=== PATIENT | male | born 1935 | race Caucasian/White ===

== ENCOUNTER 2018-05-14 13:38 | Emergency (ER) | payer MEDICARE, OTHER | END 2018-05-14 14:38 | disposition left against medical advice (07) | LOC: ERS 13:38 | DX: Z53.21 Procedure and treatment not carried out due to patient leaving prior to being seen by health care provider (principal) ==

== ENCOUNTER 2018-05-14 14:25 | Emergency (ER) | payer MEDICARE, OTHER ==
--- NOTE | 2018-05-14 15:41 | RAD ---
LUMBAR SPINE 2 VIEWS: Date: 05/14/18 HISTORY: Low back pain. FINDINGS/IMPRESSION: Postop changes of posterior spinal fusion is seen at L4-L5-S1 levels. There is Grade I anterolisthesi s of L4 over L5. No acute fracture or bony destruction is seen. The metallic hardware is intact. POS: [facility]
== END 2018-05-14 16:12 | disposition home or self-care (01) ==
LOC: SCSER 14:25
DX: S76.311A Strain of muscle, fascia and tendon of the posterior muscle group at thigh level, right thigh, initial encounter (principal); M54.5 Low back pain; M54.6 Pain in thoracic spine; I10 Essential (primary) hypertension; E11.9 Type 2 diabetes mellitus without complications; E03.9 Hypothyroidism, unspecified; K21.9 Gastro-esophageal reflux disease without esophagitis; E78.5 Hyperlipidemia, unspecified; F32.9 Major depressive disorder, single episode, unspecified; Z79.899 Other long term (current) drug therapy; Z79.84 Long term (current) use of oral hypoglycemic drugs; Z79.82 Long term (current) use of aspirin; X50.1XXA Overexertion from prolonged static or awkward postures, initial encounter
CPT/HCPCS: 72100

== ENCOUNTER 2019-04-05 19:26 | Observation (INO) | payer OTHER, MEDICARE ==
[2019-04-05 19:57] LABS: #Basophils 0.1 thou/uL (0.0-0.2); #Eosinphils 0.5 thou/uL (0.0-0.7); #Monocytes 0.6 thou/uL (0.11-0.59); #Neutrophils 3.2 thou/uL (1.40-6.50); %Basophils 1.3 % (0.0-1.0); %Lymphocytes 31.5 % (21.0-51.0); %Monocytes 8.9 % (0.0-10.0); %Neutrophils 50.3 % (42.0-75.0); Hemoglobin 12.1 g/dL (14.0-18.0); Mean Corpuscular HGB CONC 34.4 g/dL (32.0-36.0); Mean Corpuscular Hemoglobin 34.7 pg (27.0-31.0); Mean Platelet Volume 7.6 fL (7.4-10.4); Platelet Count 135 thou/uL (130-400); RBC Distribution Width 11.8 % (11.5-14.5); Red Blood Cell (RBC) Count 3.48 mill/uL (4.70-6.10); White Blood Cell (WBC) Count 6.5 thou/uL (4.8-10.8)
--- NOTE | 2019-04-05 20:17 | RAD ---
Chest AP view INDICATION: Chest pain with exertion COMPARISON: None FINDINGS: Lungs:Mild left basilar atelectasis. No consolidation demonstrated. Cardiac silhouette:The patient is rotated to the right slightly limiting evaluation of the cardiac si lhouette and mediastinum. No definite acute abnormality is noted. Pulmonary vasculature:Normal Pleural spaces:No pleural effusion or pneumothorax is demonstrated. Upper abdomen:No abnormality seen. Osseous structures: No acute osseous abnormality. Additional findings:None. IMPRESSION: No acute cardiopulmonary abnormality.
[2019-04-05 20:21] LABS: ALT (SGPT) 29 U/L (8-55); AST (SGOT) 25 U/L (5-34); Alkaline Phosphatase 60 U/L (40-110); Anion Gap 9 mmol/L (10-20); BUN (Urea Nitrogen) 27 mg/dL (8.4-25.7); Bilirubin, Total 0.4 mg/dL (0.2-1.2); Calc. Creatinine Clearance 0 mL/min (70-130); Calcium 8.8 mg/dL (7.8-10.44); Carbon Dioxide 29 mmol/L (23-31); Chloride 107 mmol/L (98-107); Estimated GFR-MDRD 50; Globulin 2.5 g/dL (2.4-3.5); Glucose 131 mg/dL (83-110); Lipase 31 U/L (8-78); Potassium 4.3 mmol/L (3.5-5.1); Protein, Total 6.5 g/dL (5.8-8.1); Sodium 141 mmol/L (136-145)
--- NOTE | 2019-04-05 21:39 | PDOC.FPRHP ---
- History of Present Illness Chief Complaint: chest pain History of Present Illness: 83 yo male with PMHx of HTN, HLD, DM2, BPH, carotid artery sclerosis c/o chestpain, substernal and right sided. Has been going on for a week. Pain worsens with deep inspiration. Has not experienced this pain at all before in the past. Has not tried medication for it. Per his , he cannot take ibuprofen. But he did take four baby aspirin before he left the house. He also took a daily aspirin this am. He has been in therapy for 2.5wks for back and hip pain. 3 years ago: reportedly had a cardiac cath that demonstrated a small blockage not requiring as tent Last year: reportedly had carotid dopplers that demonstrated 70% stenosis on one side, though stenting was not indicated due to patient's age PCP: [place] Cards: Patient's specifically requests Dr. Castaneda for patient if he needs a die tripper referral as that is her die tripper : Linh Rasmussen, Daughter: Slime Cowan [phone] ED Course: 1 nitro, 18g LAC - Allergies/Adverse Reactions Allergies Allergy/AdvReac Type Severity Reaction Status Date / Time iodine Allergy Verified 04/05/19 22:27 Penicillins Allergy Verified 04/05/19 22:27 - Home Medications Medication Instructions Recorded Confirmed Type Aspirin [Aspir-Low] 81 mg PO DAILY 04/05/19 04/05/19 History Atorvastatin Calcium 80 mg PO HS 04/05/19 04/05/19 History Citalopram Hydrobromide 40 mg PO HS 04/05/19 04/05/19 History [Citalopram HBr] Cyanocobalamin (Vitamin B-12) 1,000 mcg PO DAILY 04/05/19 04/05/19 History [Vitamin B-12] Empagliflozin [Jardiance] 25 mg PO DAILY 04/05/19 04/05/19 History Ferrous Sulfate [Feosol] 325 mg PO DAILY 04/05/19 04/05/19 History Levothyroxine Sodium [Synthroid] 50 mcg PO DAILY 04/05/19 04/05/19 History Pramipexole Di-HCl [Mirapex] 0.5 mg PO HS 04/05/19 04/05/19 History Ranitidine HCl 150 mg PO BID 04/05/19 04/05/19 History Tamsulosin HCl [Flomax] 0.4 mg PO DAILY 04/05/19 04/05/19 History - History PMHx: TN, HLD, DM2, BPH, carotid artery stenosis PSHx: Hx of heart catheterization ~ 3 years ago; back sx L1-L2, L arm surgery 195, tonsillectomy FHx: Father had MA in his 60s Social: 3-4ppd smoker for >30yr, no etoh, no drugs - Review of Systems General: denies: fever/chills, weight/appetite/sleep changes Eyes: denies: eye pain, vision changes ENT: denies: nasal congestion, rhinorrhea Respiratory: denies: cough, shortness of breath Cardiovascular: reports: chest pain. denies: edema Gastrointestinal: denies: nausea, vomiting, diarrhea, constipation Genitourinary: denies: dysuria, discharge Skin: denies: lesions, jaundice Musculoskeletal: reports: pain (back pain). denies: swelling Neurological: denies: syncope, seizure Psychological: denies: anxiety, depression - Vital signs BP: [123/103] HR: [66] RR: 20 Tmax: [97.9F] Pox: [97]% on [RA] Wt: [73.6kg] - Physical Exam Constitutional: NAD, awake, alert and oriented HEENT: EOMI, MMM Neck: supple, FROM Chest: no-tender to palpation, no lesions Heart: RRR, normal S1/S2 Lungs: CTAB, no respiratory distress Abdomen: soft, non-tender Musculoskeletal: normal structure, normal tone, ROM grossly normal Neurological: no focal deficit, normal sensation Skin: no rash/lesions, no jaundice Heme/Lymphatic: other (some purpura upper extremities) Psychiatric: normal mood and affect, good judgment and insight FMR H&P: Results - Labs Result Diagrams: 04/05/19 19:50 04/05/19 19:48 Lab results: WBC 6.5 thou/uL (4.8-10.8) 04/05/19 19:50 Hgb 12.1 g/dL (14.0-18.0) L 04/05/19 19:50 Hct 35.1 % (42.0-52.0) L 04/05/19 19:50 MCV 101.0 fL (78.0-98.0) H 04/05/19 19:50 Plt Count 135 thou/uL (130-400) 04/05/19 19:50 Neutrophils % 50.3 % (42.0-75.0) 04/05/19 19:50 Sodium 141 mmol/L (136-145) 04/05/19 19:48 Potassium 4.3 mmol/L (3.5-5.1) 04/05/19 19:48 Chloride 107 mmol/L (98-107) 04/05/19 19:48 Carbon Dioxide 29 mmol/L (23-31) 04/05/19 19:48 BUN 27 mg/dL (8.4-25.7) H 04/05/19 19:48 Creatinine 1.37 mg/dL (0.7-1.3) H 04/05/19 19:48 Glucose 131 mg/dL (83-110) H 04/05/19 19:48 Calcium 8.8 mg/dL (7.8-10.44) 04/05/19 19:48 Total Bilirubin 0.4 mg/dL (0.2-1.2) 04/05/19 19:48 AST 25 U/L (5-34) 04/05/19 19:48 ALT 29 U/L (8-55) 04/05/19 19:48 Alkaline Phosphatase 60 U/L (40-110) 04/05/19 19:48 B-Natriuretic Peptide 60.5 pg/mL (0-100) 04/05/19 19:48 Serum Total Protein 6.5 g/dL (5.8-8.1) 04/05/19 19:48 Albumin 4.0 g/dL (3.4-4.8) 04/05/19 19:48 Lipase 31 U/L (8-78) 04/05/19 19:48 - EKG Interpretation EKG: NSR, LBBB - Radiology Interpretation Chest x-ray Status: report reviewed by me (No acute cardiopulmonary abnormality) FMR H&P: A/P - Problem List (1) Atypical chest pain Current Visit: Yes Status: Acute Code(s): R07.89 - OTHER CHEST PAIN (2) LBBB (left bundle branch block) Current Visit: Yes Status: Acute Code(s): I44.7 - LEFT BUNDLE-BRANCH BLOCK, UNSPECIFIED (3) HTN (hypertension) Current Visit: Yes Status: Chronic Code(s): I10 - ESSENTIAL (PRIMARY) HYPERTENSION (4) HLD (hyperlipidemia) Current Visit: Yes Status: Chronic Code(s): E78.5 - HYPERLIPIDEMIA, UNSPECIFIED (5) DM2 (diabetes mellitus, type 2) Current Visit: Yes Status: Chronic (6) Carotid arterial disease Current Visit: Yes Status: Chronic Code(s): I73.9 - PERIPHERAL VASCULAR DISEASE, UNSPECIFIED (7) SP (acute kidney injury) Current Visit: Yes Status: Acute Code(s): N17.9 - ACUTE KIDNEY FAILURE, UNSPECIFIED (8) Macrocytic anemia Current Visit: Yes Status: Acute Code(s): D53.9 - NUTRITIONAL ANEMIA, UNSPECIFIED - Plan Patient is a 83M with PMHx of HTN, HLD, DM2, BPH, carotid artery stenosis that is admitted for atypical chest pain and new-onset LBBB #Atypical chest pain -intermittent right sided chest pain, worse with deep inspiration -last cardiac cath 3 years ago, per patients showed mild blockage not requiring stent at that time -per patient, has never had cardiac echo ->30pack year smoking hx -trop neg x 1, continue to trend -echo ordered -stress test in am -npo at midnight, avoid beta-blockers before stress test -nitro prn -tsh, A1C, mag, phos pending #New-onset LBBB -no reported hx of LBBB, though don't have any records -will get echo -telemetry monitoring overnight #SP vs CKD -creatinine 1.37 -no previous labs to compare -will provide IVF and recheck BMP in am #HTN -continue home meds #DM2 -continue home meds #HLD -continue home meds #Carotid artery stenosis -patient reportedly diagnosed with 70% stenosis in one of his carotid arteries last year, though stent placement was not indicated due to patient's age -will continue patient's home statin #Chronic Macrocytic anemia -patients states this is chronic, takes iron -B12, RBC-folate pending DVT ppx: SCDs due to fall risk Dispo: tele obs for cardiac monitoring, echo pending and stress test in the am Code: DNAR [facility]CP: [facility] H&P: Upper Level - Plan Date/Time: 04/05/192135 83 yo male presents with atypical chest pain, with a heart score of 5, negative troponin and an EKG showing a new LBBB who was admitted for a chest pain rule out. Heart cath completed without stents ~3 years prior. sWe will obs on tele overnight and order a stress test in the am. Suspected mild SP although unclear baseline. Will give mIVF and recheck labs in the am. Rachelle Long MD, PGY-3, have evaluated this patient and agree with findings/ plan as outlined by customer operations intern resident. Pertinent changes/additions are listed here.
[2019-04-05] MEDS ORDERED: Ondansetron ODT 4 MG TAB SL PRN (22:24)
[2019-04-05] MEDS ORDERED: Ondansetron PF 4 MG/2 ML Vial IVP PRN (22:24)
[2019-04-05] MEDS ORDERED: Acetaminophen 325 MG TAB PO PRN ×2 (22:24→22:36)
[2019-04-05] MEDS ORDERED: Famotidine 20 MG TAB PO PRN ×2 (22:36→23:00)
[2019-04-05] MEDS ORDERED: Ondansetron ODT 4 MG TAB PO PRN (22:36)
[2019-04-05] MEDS ORDERED: Nitroglycerin 0.4 MG TAB (25 Tab Bottle) PO PRN (22:36)
[2019-04-05 22:50] VITALS: BMI 24.7
[2019-04-05] MEDS: Lactated Ringer's 1,000 ML IV SCH (23:13)
[2019-04-05 23:40] LABS: Troponin I Less than 0.010 ng/mL (< 0.028)
[2019-04-06 02:21] LABS: Troponin I Less than 0.010 ng/mL (< 0.028)
[2019-04-06 05:52] LABS: #Basophils 0.1 thou/uL (0.0-0.2); #Eosinphils 0.5 thou/uL (0.0-0.7); #Lymphocytes 1.8 thou/uL (1.20-3.40); #Monocytes 0.5 thou/uL (0.11-0.59); #Neutrophils 2.6 thou/uL (1.40-6.50); %Basophils 0.9 % (0.0-1.0); %Eosinophils 8.7 % (0.0-10.0); %Lymphocytes 33.1 % (21.0-51.0); %Monocytes 9.7 % (0.0-10.0); %Neutrophils 47.7 % (42.0-75.0); Hemoglobin 11.8 g/dL (14.0-18.0); Mean Corpuscular HGB CONC 34.5 g/dL (32.0-36.0); Mean Corpuscular Hemoglobin 34.1 pg (27.0-31.0); Mean Corpuscular Volume 98.8 fL (78.0-98.0); Mean Platelet Volume 7.7 fL (7.4-10.4); Platelet Count 126 thou/uL (130-400); RBC Distribution Width 11.9 % (11.5-14.5); Red Blood Cell (RBC) Count 3.46 mill/uL (4.70-6.10); White Blood Cell (WBC) Count 5.5 thou/uL (4.8-10.8)
[2019-04-06] MEDS ORDERED: Levothyroxine Sodium 50 MCG TAB PO SCH (06:00)
[2019-04-06 06:05] LABS: Hemoglobin A1c 8.7 % (4.0-6.0)
[2019-04-06 06:18] LABS: Phosphorus 3.5 mg/dL (2.3-4.7)
[2019-04-06 06:21] LABS: Anion Gap 10 mmol/L (10-20); BUN (Urea Nitrogen) 23 mg/dL (8.4-25.7); Calc. Creatinine Clearance 47 mL/min (70-130); Calcium 8.6 mg/dL (7.8-10.44); Carbon Dioxide 27 mmol/L (23-31); Chloride 107 mmol/L (98-107); Estimated GFR-MDRD 56; Glucose 133 mg/dL (83-110); Magnesium 2.1 mg/dL (1.6-2.6); Potassium 3.9 mmol/L (3.5-5.1); Sodium 140 mmol/L (136-145)
[2019-04-06 06:38] LABS: Thyroid Stimulating Hormone 5.4321 uIU/mL (0.35-4.94)
--- NOTE | 2019-04-06 06:56 | PDOC.FM ---
- Subjective Subjective: Oneyda Rasmussen seen at bedside this morning. States that his chest pain, that is worse with deep inspiration, does not feel as bad this morning. Scheduled for stress test and echo today. Denies any fever, chills, dyspnea, LE edema, abdominal pain, n/v. There were no acute events overnight and patient has no complaints this morning. - Objective MAR Reviewed: Yes Vital Signs & Weight: Vital Signs (12 hours) Temp Pulse Resp BP BP Pulse Ox 04/06/19 04:03 72 18 120/58 L 95 04/05/19 22:07 97.9 F 71 18 132/61 98 Weight Weight 73.663 kg I&O: 04/04/19 04/05/19 04/06/19 06:59 06:59 06:59 Output Total 575 Balance -575 Result Diagrams: 04/06/19 05:29 04/06/19 05:29 Radiology Reviewed by me: Yes Phys Exam - Physical Examination Constitutional: NAD HEENT: moist MMs, sclera anicteric Neck: no JVD, supple, full ROM Respiratory: no wheezing, no rales, no rhonchi, clear to auscultation bilateral Cardiovascular: RRR, no significant murmur Gastrointestinal: soft, non-tender, no distention Musculoskeletal: no edema, pulses present Neurological: non-focal, normal sensation, moves all 4 limbs Psychiatric: normal affect, A&O x 3 Skin: no rash, normal turgor, cap refill <2 seconds Dx/Plan (1) Atypical chest pain Code(s): R07.89 - OTHER CHEST PAIN Status: Acute (2) SP (acute kidney injury) Code(s): N17.9 - ACUTE KIDNEY FAILURE, UNSPECIFIED Status: Acute (3) LBBB (left bundle branch block) Code(s): I44.7 - LEFT BUNDLE-BRANCH BLOCK, UNSPECIFIED Status: Acute (4) Macrocytic anemia Code(s): D53.9 - NUTRITIONAL ANEMIA, UNSPECIFIED Status: Chronic (5) Carotid arterial disease Code(s): I73.9 - PERIPHERAL VASCULAR DISEASE, UNSPECIFIED Status: Chronic (6) DM2 (diabetes mellitus, type 2) Status: Chronic (7) HLD (hyperlipidemia) Code(s): E78.5 - HYPERLIPIDEMIA, UNSPECIFIED Status: Chronic (8) HTN (hypertension) Code(s): I10 - ESSENTIAL (PRIMARY) HYPERTENSION Status: Chronic - Plan Plan: Patient is a 83M with PMHx of HTN, HLD, DM2, BPH, carotid artery stenosis that is admitted for atypical chest pain and new-onset LBBB 1) Atypical chest pain - intermittent right sided chest pain, worse with deep inspiration - last cardiac cath 3 years ago, mild blockage not requiring stent at that time , need records - >30pack year smoking hx - trop neg x 1, continue to trend - echo and stress in the AM - nitro prn and aspirin - TSH normal, A1C of 8.7, Mag and phos wnl 2) New-onset LBBB - no reported hx of LBBB, though don't have any records - stress and echo 3) SP vs CKD - creatinine 1.37 on admission, improved to 1.23 this morning - no previous labs to compare - will provide IVF and recheck BMP in am 4) HTN - controlled, continue home meds 5) DM2 - A1c 8.7, continue home meds - consider additional agent and close follow up with PCP 6) HLD - continue home meds 7) Carotid artery stenosis - reportedly diagnosed with 70% stenosis in one of his carotid arteries last year - stent placement was not indicated due to patient's age - will continue patient's home statin 8) Chronic Macrocytic anemia - patients states this is chronic, takes iron - B12 568, RBC-folate pending
[2019-04-06] MEDS: Lactated Ringer's 1,000 ML IV SCH (08:35)
[2019-04-06] MEDS ORDERED: Empagliflozin [Jardiance] 25 MG PO SCH (09:00)
[2019-04-06] MEDS ORDERED: Aspirin 325 mg Enteric Coated Tablet PO SCH (09:00)
[2019-04-06] MEDS ORDERED: Cyanocobalamin (Vitamin B-12) 1,000 MCG TAB PO SCH (09:00)
[2019-04-06] MEDS ORDERED: Tamsulosin HCl 0.4 MG CAP PO SCH (09:00)
[2019-04-06] MEDS ORDERED: Ferrous Sulfate 325 MG TAB PO SCH (09:00)
[2019-04-06] MEDS ORDERED: ADENOSINE 60 MG/20 ML VIAL ONE (09:13)
--- NOTE | 2019-04-06 13:42 | NM ---
EXAM: Nuclear Medicine Cardiac SPECT with EF and wall motion: HISTORY: Chest pain Protocol: Exam was performed using adenosine protocol. The patient is injected with30.0 millicuries of technetium 99m sestamibi intravenously for stress lakeisha ges. The patient is injected with11 millicuries of technetium 99 sestamibi intravenously for resting image s. Multiple SPECT images are performed in the short axis, vertical long axis, and horizontal long axis. FINDINGS: There is an area of decreased activity on stress imaging within the apex and apical septum, apical in ferior and apical lateral gonzalez evidence for an area of ischemia. TID:0.83 LHR:0.37 EDV:91 mL EF:66% Wall motion:Unremarkable IMPRESSION: Evidence for ischemia primarily involving the apex region. CODE T
--- NOTE | 2019-04-06 13:48 | HP ---
I have reviewed the history and physical performed by Dr. Lyndsey Kendall and I agree with her assessment and plan. HISTORY OF PRESENT ILLNESS: Briefly, Mr. Rasmussen is a very pleasant 83-year-old man who was admitted with some substernal right-sided chest pain worse with deep inspiration. He did not necessarily notice any relationship to exercise, but did state that breathing heavily would exacerbate the pain. He was admitted and worked up. His stress test portion is negative but we are awaiting his nuclear medicine portion. His troponins were all negative. His EKG showed a left bundle-branch block. PLAN: The patient is admitted and worked up. I performed an H and P and have cosigned that of Dr. Lyndsey Kendall with whom I agree. Job ID: [id number]
[2019-04-06 15:33] VITALS: BP 153/69; TEMP 97.7
[2019-04-06] MEDS ORDERED: Ketorolac Tromethamine 30 MG/ML VIAL IVP SCH (16:00)
--- NOTE | 2019-04-06 17:22 | CON ---
DATE OF CONSULTATION: HISTORY OF PRESENT ILLNESS: The patient is an 83-year-old gentleman, who presents for evaluation of persistent chest discomfort. The patient states that he has a history of mild coronary artery disease. He underwent a cardiac catheterization [address] Pate. The patient has been on medical therapy. He was in his usual state of health until a few weeks ago. He developed midsternal chest discomfort. This has been a persistent discomfort for the past 3 weeks. He states the chest discomfort is worse whenever he takes a deep breath. The patient does significant physical activity including lifting heavy objects. The patient denied having any previous chest discomfort prior to a few weeks ago. The patient denies becoming diaphoretic or dyspneic with the chest discomfort. PAST MEDICAL HISTORY: 1. Coronary artery disease. 2. Cerebrovascular disease. 3. Hypertension. 4. Diabetes mellitus. 5. Dyslipidemia. PAST SURGICAL HISTORY: Back surgery, tonsillectomy, and arm surgery. SOCIAL HISTORY: Nonsmoker. MEDICATIONS: 1. Flomax 0.4 daily. 2. Zantac 150 b.i.d. 3. Mirapex 0.5 daily. 4. Synthroid 50 daily. 5. Iron sulfate 325 daily. 6. Jardiance 25 daily. 7. Lipitor 80 daily. 8. Aspirin 81 daily. 9. Glucotrol 10 b.i.d. ALLERGIES: IODINE AND PENICILLIN. REVIEW OF SYSTEMS: Ten-point system otherwise unremarkable. PHYSICAL EXAMINATION: GENERAL: A well-developed gentleman, in no acute distress. VITAL SIGNS: Blood pressure 144/68. NECK: No jugular venous distention. LUNGS: Clear to auscultation. HEART: Regular rate and rhythm. Normal S1 and S2. ABDOMEN: Nondistended. EXTREMITIES: Show no edema. VASCULAR: Radial pulses are 2+. LABORATORY RESULTS: Sodium 140, potassium 3.9, chloride 107, bicarbonate 27, BUN 23, and creatinine 1.23, and glucose 133. Troponin was less than 0.01. White blood cell count 5.5, hemoglobin 11.8, hematocrit 34.2, and platelets are 126. His EKG revealed him to have normal sinus rhythm with a left bundle-branch block. Adenosine Cardiolite stress revealed normal left ventricular ejection fraction of 66% with evidence of apical ischemia. IMPRESSION: 1. Musculoskeletal discomfort. 2. Abnormal stress test. 3. History of coronary artery disease. 4. History of cerebrovascular disease. 5. Hypertension. 6. Diabetes mellitus. 7. Dyslipidemia. PLAN: This gentleman presented with persistent chest discomfort suggestive of musculoskeletal pain. The patient has been highly advised to quit lifting heavy objects including 50 pounds bags. The patient's EKGs showed with showed no evidence of his ischemia with left bundle-branch block and cardiac enzymes showed no evidence of myocardial infarction. The patient's stress test showed normal left ventricular systolic function with apical ischemia with the patient being asymptomatic and with ischemia in one distribution. I have discussed the options of repeat invasive evaluation versus medical therapy. The patient strongly prefers medical therapy. The patient is on appropriate medications including lipid-lowering medication and aspirin. The patient will follow up with his primary electrical checkout mechanic, Dr. Pate. Job ID: [id number] [facility]
[2019-04-06] MEDS ORDERED: Citalopram 20 MG TAB PO SCH (21:00)
[2019-04-06] MEDS ORDERED: Atorvastatin Calcium 40 MG TAB PO SCH (21:00)
[2019-04-06] MEDS ORDERED: Pramipexole Di-HCl 0.25 MG TAB PO SCH (21:00)
[2019-04-07] MEDS ORDERED: Levothyroxine Sodium 75 MCG TAB PO SCH (06:00)
--- NOTE | 2019-04-07 10:49 | DIS ---
DATE OF ADMISSION: 04/05/2019 DATE OF DISCHARGE: 04/06/2019 RESIDENT: Shaheen Esposito MD. ADMITTING ATTENDING: Nicolás Rao MD. DISCHARGE ATTENDING: Jason De Luna MD. CONSULTS: Cardiology, Dr. Gaston on 04/06/2019. PROCEDURE/IMAGING: Chest x-ray on 04/05/2019, impression; no acute cardiopulmonary abnormality. Nuclear medicine stress test on 04/06/2019, impression; evidence for ischemia primarily involving the apex region. EF at 66%. PRIMARY DIAGNOSIS: Atypical chest pain. SECONDARY DIAGNOSES: 1. Abnormal stress test. 2. History of coronary artery disease. 3. History of cardiovascular disease. 4. Hypertension. 5. Diabetes. 6. Dyslipidemia. 7. History of tobacco use. DISCHARGE MEDICATIONS: Resume home medications including. 1. Aspirin 81 mg p.o. daily. 2. Mirapex 0.5 mg p.o. at bedtime. 3. Jardiance 25 mg p.o. daily. 4. Atorvastatin 80 mg p.o. at bedtime. 5. Citalopram 40 mg p.o. at bedtime. 6. Synthroid 50 mcg p.o. daily. 7. Ranitidine 150 mg p.o. b.i.d. 8. Flomax 0.4 mg daily. 9. Ferrous sulfate 325 mg p.o. daily. 10. Vitamin B12 1000 mcg p.o. daily. 11. Glipizide 10 mg p.o. b.i.d. 12. Nitroglycerin 0.4 mg p.o. q.5 minutes p.r.n. HOSPITAL COURSE: Oneyda Rasmussen is an 83-year-old male with past medical historyof CAD, CVD, hypertension, dyslipidemia, diabetes, history of tobacco use, who presented to the ED for evaluation of persistent chest discomfort. States that chest pain is worsened by inspiration located midsternal, has been going on for the past three weeks. Denies any exertional chest pain. Denies diaphoresis or nausea or dyspnea with chest discomfort. Stated that he had been doing significant physical activity including lifting heavy objects. Also stated that he had had a cardiac catheterization three years ago by Dr. Pate, his baker paint. On admission, chest x-ray was negative. Troponins were negative x3 and EKG showed a possible new left bundle branch block, although there are no previous records of an EKG. Stress test was performed that showed evidence for ischemia primarily involving the apex region. Dr. Gaston was consulted who saw the patient and per his plan thought the chest discomfort was suggestive of musculoskeletal pain. He advised him to quit lifting heavy objects including 50-pound bags. He does discuss the options of repeat invasive evaluation versus medical therapy and the patient strongly prefers medical therapy. Dr. Gaston confirms the patient is on appropriate medications including lipid-lowering medication, aspirin and recommended that he will follow up with his primary baker paint, Dr. Pate. The patient was cleared for discharge on 04/06/2019 with instructions to follow up with PCP and baker paint. DISPOSITION: Stable. DISCHARGE INSTRUCTIONS: 1. Location: Home. 2. Diet: Heart healthy and diabetic diet. 3. Activity: As tolerated. 4. Follow up with PCP and baker paint. Job ID: [id number]
[2019-04-08 15:10] LABS: Folate,Hemolysate 594.5 ng/mL (Not Estab.); Hematocrit 33.5 % (37.5-51.0); RBC Folate Test Component 1775 ng/mL (>498)
== END 2019-04-06 18:55 | disposition home or self-care (01) ==
LOC: ERS 19:26 → 2SW 21:24
PROVIDERS: ADMIT Family Medicine; ATTEND Family Medicine
DX: R07.89 Other chest pain (principal); R94.39 Abnormal result of other cardiovascular function study; I25.10 Atherosclerotic heart disease of native coronary artery without angina pectoris; I11.9 Hypertensive heart disease without heart failure; E11.9 Type 2 diabetes mellitus without complications; E78.5 Hyperlipidemia, unspecified; Z88.0 Allergy status to penicillin; Z91.041 Radiographic dye allergy status; Z87.891 Personal history of nicotine dependence; Z79.82 Long term (current) use of aspirin; Z79.84 Long term (current) use of oral hypoglycemic drugs
CPT/HCPCS: 36415; 71045; 78452; 80048; 80053; 82607; 82747; 83036; 83690; 83735; 83880; 84100; 84443; 84484; 85025; 93005; 93017; 94760; 96361; 96374; A9500; G0378; J0153; J1885

== ENCOUNTER 2019-09-06 14:36 | Outpatient (CLI) | payer OTHER ==
--- NOTE | 2019-09-06 16:33 | MRI ---
MRI LUMBAR SPINE WITH AND WITHOUT CONTRAST: DATE: 09/06/2019 HISTORY: 84-year-old male with low back pain and bilateral lumbar radiculopathy. COMPARISON: 05/05/2019 from [facility] [place] TECHNIQUE: Multiple sequences obtained in axial and sagittal planes, pre and post IV injection of gadolinium-bas ed contrast agent. FINDINGS: For the purposes of this report, the first nonrib-bearing vertebra will be designated as L1. The leve l of greatest lordotic angulation will be designated as L5-S1. The patient will be considered to have a slightly partially lumbarized S1. There has been interval placement of bilateral pedicle screw s and laminectomy, at lower lumbar spine, since the prior study. The bilateral pedicle screws will be considered to be at L4, L5, and S1. T12-L1:Essentially normal L1-2:Conus terminates at this level. Mild disc bulge. No central or neural foraminal stenosis. Disc s pace maintained. L2-3:Interval worsening of diffuse disc bulge. New moderate disc space narrowing. New finding of mode rate central spinal canal stenosis. Mild to moderate bilateral neural foraminal stenosis. L3-4:New large circumferential diffuse disc bulge. Superimposed new superimposed right paracentral, r ight lateral, and right far lateral moderate size disc herniation-extrusion, which results in new severe right neural foraminal stenosis, with complete effacement of right neural foraminal fat signal , and impingement on exiting right L3 nerve root. To a slightly lesser degree, there is also severe new left neural foraminal stenosis. There is a new finding of extremely severe central spinal canal s tenosis with severe crowding of cauda equina (which results in tortuosity of cauda equina at levels superior to and inferior to this level), and complete obliteration of CSF signal. Interval worsening of now severe bilateral facet DJD. L4-5:New decompressive laminectomy defect results in interval resolution of the previously demonstrat ed central and right lateral recess stenoses. The degree of grade 1 anterolisthesis of L4 on L5 due to bilateral L4 spondylolysis, is unchanged. There has been interval worsening of disc space narrowin g, now moderate to severe. No right neural foraminal stenosis. Questionable mild to moderate left neural foraminal stenosis. At the level of the disc space, there is mild central spinal canal stenosi s. The thecal sac is generous in caliber throughout the L5 level. There is an approximately 4 x 3 x 1.5 cm postoperative fluid collection abutting the dorsal surface of the thecal sac from L4-5 to L5-S 1 levels. Difficult to evaluate for rim enhancement because of the magnetic susceptibility artifact from the hardware. The hardware also makes it difficult to evaluate bone marrow signal.. L5-S1:The retrospinal fluid collection described above reaches this level. Moderate disc space narrow ing. Central and bilateral paracentral partially calcified disc-osteophyte complex protrudes into the anterior epidural space and abuts the bilateral S1 nerve roots without significant displacement. The appearance of the intervertebral disc has not changed. The laminectomy defect extends to this level, resulting in interval resolution of the high-grade lateral recess stenosis demonstrated previo usly. Moderate-severe right neural foraminal stenosis and moderate left neural foraminal stenosis. The degree of right neural foraminal stenosis is probably unchanged. IMPRESSION: 1) new finding of extremely severe central spinal canal stenosis and severe bilateral neural foramina l stenosis at L3-4 (the level just superior to the fixation by hardware). In addition to diffuse prominent disc bulge, there is a right-sided moderate sized disc herniation that contributes to this. 2) interval placement of bilateral pedicle screws at L4, L5, and S1, stabilizing the grade 1 spondylo listhesis at L4-5. 3) interval midline laminectomies at L4-5 and L5-S1, improving the previously demonstrated lateral re cess and central spinal canal stenosis. 4) lumbar spondylosis, with high-grade degenerative disc disease at lower levels. 5) post surgical intraspinal fluid collection from L4-5 to L5-S1 abutting the dorsal surface of theca l sac.
== END 2019-09-06 14:37 | disposition home or self-care (01) ==
LOC: SCSMRI 14:36
DX: M54.5 Low back pain (principal); M51.36 Other intervertebral disc degeneration, lumbar region; M47.816 Spondylosis without myelopathy or radiculopathy, lumbar region; M48.061 Spinal stenosis, lumbar region without neurogenic claudication; M51.26 Other intervertebral disc displacement, lumbar region; M43.16 Spondylolisthesis, lumbar region; M48.07 Spinal stenosis, lumbosacral region; Z98.890 Other specified postprocedural states
CPT/HCPCS: 72158; 82565

== ENCOUNTER 2020-02-17 21:14 | Observation (INO) | payer MEDICARE, OTHER ==
[~2020-02-17 21:14] MED LIST: Iopamidol-370 76% 500 ML 1 ML ONE
[2020-02-17 21:47] LABS: #Basophils 0.1 thou/uL (0.0-0.2); #Eosinphils 0.3 thou/uL (0.0-0.7); #Monocytes 0.9 thou/uL (0.11-0.59); #Neutrophils 4.6 thou/uL (1.40-6.50); %Basophils 1.1 % (0.0-1.0); %Eosinophils 3.7 % (0.0-10.0); %Lymphocytes 25.5 % (21.0-51.0); %Monocytes 11.6 % (0.0-10.0); %Neutrophils 58.1 % (42.0-75.0); Hemoglobin 12.5 g/dL (14.0-18.0); Mean Corpuscular HGB CONC 34.3 g/dL (32.0-36.0); Mean Corpuscular Hemoglobin 34.4 pg (27.0-31.0); Mean Platelet Volume 7.9 fL (7.4-10.4); Platelet Count 172 thou/uL (130-400); RBC Distribution Width 11.4 % (11.5-14.5); Red Blood Cell (RBC) Count 3.63 mill/uL (4.70-6.10)
[2020-02-17] MEDS ORDERED: Morphine 4 MG/ML VIAL ONE (21:48)
--- NOTE | 2020-02-17 21:51 | RAD ---
PORTABLE CHEST: History: Chest pain Comparison: 04-05-19 FINDINGS: The lungs appear clear. No evidence of infiltrate. Heart and mediastinum unremarkable. No evidence of vascular congestion or edema. No effusion. IMPRESSION: No acute process. POS: [facility]
[2020-02-17 22:03] LABS: ALT (SGPT) 34 U/L (8-55); AST (SGOT) 36 U/L (5-34); Albumin 4.1 g/dL (3.4-4.8); Alkaline Phosphatase 73 U/L (40-110); Anion Gap 13 mmol/L (10-20); BUN (Urea Nitrogen) 33 mg/dL (8.4-25.7); Bilirubin, Total 0.4 mg/dL (0.2-1.2); Calc. Creatinine Clearance 0 mL/min (70-130); Calcium 8.9 mg/dL (7.8-10.44); Carbon Dioxide 24 mmol/L (23-31); Chloride 109 mmol/L (98-107); Estimated GFR-MDRD 45; Globulin 2.6 g/dL (2.4-3.5); Glucose 124 mg/dL (83-110); Lipase 34 U/L (8-78); Magnesium 2.1 mg/dL (1.6-2.6); Potassium 4.9 mmol/L (3.5-5.1); Protein, Total 6.7 g/dL (5.8-8.1); Sodium 141 mmol/L (136-145)
[2020-02-17] MEDS ORDERED: methylPREDNISolone Sod Succ 40 MG VIAL ONE (23:13)
[2020-02-17] MEDS ORDERED: Famotidine/PF 20 mg/2ml Vial ONE (23:13)
[2020-02-17] MEDS ORDERED: diphenhydrAMINE 50 MG/ML VIAL ONE ×2 (23:13→23:14)
[2020-02-18] MEDS ORDERED: Acetaminophen 650 MG Suppository PR PRN (01:59)
[2020-02-18] MEDS ORDERED: Acetaminophen 325 MG TAB PO PRN (01:59)
[2020-02-18] MEDS ORDERED: Dextrose 5% in Water 1,000 ML IV PRN (02:10)
[2020-02-18] MEDS ORDERED: Dextrose 50% Abboject 50 ML SYRINGE SLOW IVP PRN (02:10)
--- NOTE | 2020-02-18 02:25 | PDOC.HHP ---
Hospitalist HPI - History of Present Illness Chest pain History of Present Illness: ADMISSION DATE: 02/18/2020 TIME OF ASSESSMENT: 0130 PRIMARY CARE PHYSICIAN: [facility] CHIEF COMPLAINT: Chest pain HPI: Patient presents to the emergency department with complaints of chest pain that started Monday at noon. Patient states the pain was in the lower sternum which she describes as an aching and rates it a 5 out of 10 in severity. States the pain has been constant since then. Denies taking anything to help with the pain. Patient states he is not sure if it has been intermittent or constant because he states the discomfort is manageable and not fully noticeable unless he is focused on it. He does state the pain is nonradiating. He received pain medicine in the emergency department which helped to relieve it fully however states that the discomfort seems to be noticeable now that he is paying attention to it and is currently a 3 out of 10 in severity. Reports having issues with nausea and vomiting since yesterday. Has been able to tolerate some p.o. intake. Denies any abdominal pain or cramping. No bowel changes. Reports nocturia which is stable. Denies any recent fevers or chills. No cough or hemoptysis. No lower extremity swelling or edema. All other review of systems are negative. Patient states he came into the emergency department upon the insistence of his family when he shared he had been experiencing chest pain. His daughter is a critical care nurse at [employer] in [place]. Patient had a stress test done in 03/2019 which was abnormal and showing ischemia involving apex region. ED COURSE: He was brought in by EMS and in route was given 4 mg of Zofran and 324 mg of aspirin. He also received nitro sublingual x3. He had an EKG done in the emergency department showed a left bundle branch block. Per Dr. Watters distances similar to old EKG done. Labs notable for hemoglobin of 12.5, hematocrit 36.4, platelets 122, neutrophils 58.1%. Initial troponin negative. Magnesium 2.1. Yesterday 4. LFTs unremarkable. BUN 33, creatinine 1.48, GFR 45. Lipase normal. CT angiogram 0.11. Chest x-ray showed no acute process. CT imaging with contrast done to rule out aortic dissection. Report pending. Abdominal US also done but pending report. Patient given 20 mg of Pepcid. Also given 40 mg of Solu-Medrol IV and Benadryl 50 mg IV due to iodine contrast. He received 1 L of normal saline and for his pain received 4 mg of morphine IV. PAST MEDICAL HISTORY: 1. BPH 2. Type 2 diabetes myelitis 3. Hypothyroidism 4. Hyperlipidemia 5. GERD 6. Retinopathy, diabetic 7. Hard of hearing 8. Chronic back pain 9. Anxiety 7. Dementia 8. Depression PAST SURGICAL HISTORY: 1. Left arm surgery 2. Low back surgery 3. Tonsillectomy 4. Prostate surgery SOCIAL HISTORY: Patient reports smoking in the past but no longer smokes. He quit more than 10 years ago. Denies any heavy alcohol consumption or drug use. He is fully independent at home lives with family. Does not require any assistive devices for mobilization. FAMILY HISTORY: Noncontributory ALLERGIES: Iodine and penicillin CURRENT MEDICATIONS: Tamsulosin 0.4 mg p.o. daily Levothyroxine 50 mcg p.o. daily Pramipexole 0.5 mg p.o. daily Glipizide 10 mg p.o. twice daily Citalopram 40 mg p.o. daily Atorvastatin 80 mg p.o. daily Donepezil 10 mg, half a tablet p.o. daily Bupropion 100 mg p.o. daily Famotidine 20 mg p.o. twice daily Tylenol with codeine as needed for pain. Empagliflozin 25 mg/0.5 mg in the AM. - Exam General Appearance: NAD, awake alert General - other findings: VS: BP 139/38, HR 75, RR 15, O2 sat 98% on room air ENT: normocephalic atraumatic, no oropharyngeal lesions Neck: supple, no lymphadenopathy Heart: RRR, normal peripheral pulses Heart - other findings: no reproducible pain on palpation Respiratory: CTAB, no wheezes, no rales, no ronchi, normal chest expansion Gastrointestinal: soft, non-tender, non-distended, normal bowel sounds, no guarding, no rigidity Extremities: no edema Skin: normal turgor, no lesions, no rashes Neurological: cranial nerve grossly intact Musculoskeletal: normal tone, normal strength, no muscle wasting Psychiatric: normal affect, normal behavior, oriented to person, oriented to place Hospitalist Results - Labs Result Diagrams: 02/18/20 02:27 02/17/20 21:35 Lab results: WBC 8.0 thou/uL (4.8-10.8) 02/17/20 21:35 Hgb 12.5 g/dL (14.0-18.0) L 02/17/20 21:35 Hct 36.4 % (42.0-52.0) L 02/17/20 21:35 MCV 100.0 fL (78.0-98.0) H 02/17/20 21:35 Plt Count 172 thou/uL (130-400) 02/17/20 21:35 Neutrophils % 58.1 % (42.0-75.0) 02/17/20 21:35 Sodium 141 mmol/L (136-145) 02/17/20 21:35 Potassium 4.9 mmol/L (3.5-5.1) 02/17/20 21:35 Chloride 109 mmol/L (98-107) H 02/17/20 21:35 Carbon Dioxide 24 mmol/L (23-31) 02/17/20 21:35 BUN 33 mg/dL (8.4-25.7) H 02/17/20 21:35 Creatinine 1.48 mg/dL (0.7-1.3) H 02/17/20 21:35 Glucose 124 mg/dL (83-110) H 02/17/20 21:35 Calcium 8.9 mg/dL (7.8-10.44) 02/17/20 21:35 Total Bilirubin 0.4 mg/dL (0.2-1.2) 02/17/20 21:35 AST 36 U/L (5-34) H 02/17/20 21:35 ALT 34 U/L (8-55) 02/17/20 21:35 Alkaline Phosphatase 73 U/L (40-110) 02/17/20 21:35 Troponin I Less than 0.010 ng/mL (< 0.028) 02/17/20 21:35 Serum Total Protein 6.7 g/dL (5.8-8.1) 02/17/20 21:35 Albumin 4.1 g/dL (3.4-4.8) 02/17/20 21:35 Lipase 34 U/L (8-78) 02/17/20 21:35 - Radiology Interpretation Chest x-ray Status: report reviewed by pr Hospitalist H&P A/P - Problem (1) Chest pain Code(s): R07.9 - CHEST PAIN, UNSPECIFIED Status: Acute Assessment and Plan: Continue cardiac monitoring. Trend troponins. CT Aortic dissection done, report pending. Continue daily aspirin. Check lipid panel and TSH with morning labs. Cardiology consult. Keep NPO. (2) Nausea & vomiting Code(s): R11.2 - NAUSEA WITH VOMITING, UNSPECIFIED Status: Acute Assessment and Plan: Has resolved. (3) SP (acute kidney injury) Code(s): N17.9 - ACUTE KIDNEY FAILURE, UNSPECIFIED Status: Acute Assessment and Plan: Gentle IV hydration. Monitor renal function. (4) LBBB (left bundle branch block) Code(s): I44.7 - LEFT BUNDLE-BRANCH BLOCK, UNSPECIFIED Status: Chronic (5) Carotid arterial disease Code(s): I73.9 - PERIPHERAL VASCULAR DISEASE, UNSPECIFIED Status: Chronic Assessment and Plan: Resume home medications as appropriate. (6) DM2 (diabetes mellitus, type 2) Status: Chronic Assessment and Plan: Monitor glucose. Hold sliding scale for tonight, as patient is NPO. Resume home medications when verified as appropriate. (7) HTN (hypertension) Code(s): I10 - ESSENTIAL (PRIMARY) HYPERTENSION Status: Chronic Assessment and Plan: Monitor BP. Resume home medications as appropriate. (8) HLD (hyperlipidemia) Code(s): E78.5 - HYPERLIPIDEMIA, UNSPECIFIED Status: Chronic Assessment and Plan: Check lipid panel with AM labs Continue statin (9) Hypothyroidism Code(s): E03.9 - HYPOTHYROIDISM, UNSPECIFIED Status: Chronic Assessment and Plan: Resume home meds once verified. Check TSH with AM labs. - Plan Plan: DVT Prophylaxis with mechanical SCDs. Surrogate decision maker is his Linh Rasmussen. Discussed with Attending who agrees with plan as above.
[2020-02-18 02:33] LABS: #Basophils 0.1 thou/uL (0.0-0.2); #Eosinphils 0.1 thou/uL (0.0-0.7); #Lymphocytes 0.9 thou/uL (1.20-3.40); #Monocytes 0.1 thou/uL (0.11-0.59); #Neutrophils 4.7 thou/uL (1.40-6.50); %Basophils 1.1 % (0.0-1.0); %Eosinophils 1.7 % (0.0-10.0); %Monocytes 1.6 % (0.0-10.0); %Neutrophils 80.7 % (42.0-75.0); Hemoglobin 12.2 g/dL (14.0-18.0); Mean Corpuscular HGB CONC 33.7 g/dL (32.0-36.0); Mean Corpuscular Hemoglobin 34.2 pg (27.0-31.0); Mean Platelet Volume 7.7 fL (7.4-10.4); Platelet Count 155 thou/uL (130-400); RBC Distribution Width 11.5 % (11.5-14.5); Red Blood Cell (RBC) Count 3.55 mill/uL (4.70-6.10); White Blood Cell (WBC) Count 5.8 thou/uL (4.8-10.8)
[2020-02-18 03:10] LABS: Anion Gap 13 mmol/L (10-20); BUN (Urea Nitrogen) 30 mg/dL (8.4-25.7); Calc. Creatinine Clearance 0 mL/min (70-130); Calcium 8.4 mg/dL (7.8-10.44); Carbon Dioxide 21 mmol/L (23-31); Cardiac Risk 1.8 (Less than 4.5); Chloride 109 mmol/L (98-107); Cholesterol 72 mg/dl (< 200 Desired); Estimated GFR-MDRD 57; Glucose 143 mg/dL (83-110); HDL Cholesterol 40 mg/dL (>60 Neg Risk); LDL Cholesterol, Calculated 25 mg/dL; Potassium 4.6 mmol/L (3.5-5.1); Sodium 138 mmol/L (136-145); Triglycerides 37 mg/dL (Less than 150)
--- NOTE | 2020-02-18 05:42 | ULT ---
GALLBLADDER ULTRASOUND: Date; 02/17/2020 HISTORY: Abdominal pain. FINDINGS: Gallbladder has a normal sonographic appearance. No evidence of gallstones. The common duct is normal caliber. The pancreas is obscured. Liver appears unremarkable. Right kidney is partially obscured but is unremarkable as visualized. No hydronephrosis. IMPRESSION: Unremarkable gallbladder ultrasound. Technologist describes a negative Yeager's sign. POS: [facility]
--- NOTE | 2020-02-18 07:34 | CT ---
PRELIMINARY REPORT/[facility]/EMERGENCY AFTER HOURS PROCEDURE: EXAM: CTA Chest and Abdomen with Intravenous Contrast CLINICAL HISTORY: Patient presents from home he was working yesterday in his house and moving out of their old house at that time the patient noted he had acute onset chest pain that was associated with exertion. Patient also had shortness of breath. EPIGASTRIC AND RUQ ABD PAIN TECHNIQUE: Axial CTA images of the chest and abdomen with intravenous contrast. Reformatted images were created and reviewed. Three-dimensional MIP/volume rendered reformations were performed. CONTRAST: With; 70ML ISOVUE 370 COMPARISON: None provided. FINDINGS: VASCULATURE: AORTA There is no evidence for aneurysm or dissection of the thoracic or abdominal aorta. Atherosclerosis. PULMONARY ARTERIES The examination is optimized for assessment of the aorta, rather than the pulmonary arteries. No evidence of central or segmental pulmonary embolism is seen. CHEST: Lungs: Bibasilar linear subsegmental atelectasis. No mass or consolidation. Pleural spaces: No evidence of pneumothorax. No pleural effusion. Heart and mediastinum: No cardiomegaly. No significant pericardial effusion. The coronary arteries are calcified. ABDOMEN: LIVER Unremarkable. No mass. GALLBLADDER AND BILE DUCTS No calcified stone. No ductal dilation. PANCREAS Unremarkable. No ductal dilation. SPLEEN Unremarkable. ADRENAL No mass. KIDNEYS AND URETERS Right kidney is normal. 1.4 cm cyst at the lower pole of the left kidney. No hydronephrosis. No hari id mass. STOMACH AND BOWEL Multiple mildly dilated loops of small bowel measuring up to 2.7 cm in diameter. Scattered colonic d iverticulosis. No bowel wall thickening. No CT evidence of acute diverticulitis. APPENDIX No CT evidence of appendicitis. PERITONEUM No free fluid. No free air. LYMPH NODES No lymphadenopathy is evident. BONES AND SOFT TISSUES No acute osseous abnormality. The posterior paraspinal hardware from L4 to the sacrum. Laminectomie s L3, L4, and L5. Grade 1 anterolisthesis of L4 on L5. Multilevel degenerative disc disease. The s oft tissues are unremarkable. IMPRESSION: There is no evidence for aneurysm or dissection of the thoracic or abdominal aorta. Multiple mildly dilated loops of small bowel which may represent adynamic ileus. Scattered colonic diverticulosis with no evidence of diverticulitis. Bibasilar subsegmental atelectasis. ELECTRONICALLY SIGNED BY: Nile Bean MD Feb 18, 2020 12:24:48 AM CDT This report is intended for review by the ordering physician only, in accordance of law. If you recei ve this report in error, please call [facility] at [phone]. FINAL REPORT EMERGENCY AFTER HOURS CTA CHEST AND ABDOMEN WITH CONTRAST: FINDINGS/IMPRESSION: I agree with the findings and impression given in the preliminary report per [facility] physici an. 1. No evidence of aortic aneurysm or dissection. 2. Left renal cyst. 3. Small bowel loops are likely normal without significant evidence of obstruction or ileus. POS: [facility]
[2020-02-18 07:51] VITALS: BMI 24.5
[2020-02-18] MEDS ORDERED: Tamsulosin HCl 0.4 MG CAP PO SCH (09:00)
[2020-02-18] MEDS ORDERED: Donepezil HCl 5 MG TAB PO SCH (09:00)
[2020-02-18] MEDS ORDERED: Aspirin 81 mg Enteric Coated Tablet PO SCH ×2 (09:00)
[2020-02-18] MEDS ORDERED: buPROPion HCl 100 MG TAB PO SCH (09:00)
[2020-02-18] MEDS ORDERED: Famotidine 20 MG TAB PO SCH (09:00)
[2020-02-18] MEDS ORDERED: Levothyroxine Sodium 50 MCG TAB PO SCH (09:00)
[2020-02-18] MEDS ORDERED: Empagliflozin 25 MG TAB PO SCH (09:00)
[2020-02-18] MEDS ORDERED: ADENOSINE 60 MG/20 ML VIAL ONE (09:40)
--- NOTE | 2020-02-18 10:05 | CON ---
DATE OF CONSULTATION: HISTORY OF PRESENT ILLNESS: The patient is an -[id number]-[id number] gentleman with a history of coronary artery disease, who presented with chest discomfort and dyspnea. The patient has previous history of mild coronary artery disease. He states several years ago, he underwent a cardiac catheterization, which was found to have mild CAD. The patient has been on medical therapy. He was admitted here in March 2019 with atypical chest pain. He underwent a Cardiolite stress test that revealed normal left ventricular systolic function with apical ischemia. The patient did well until the day of admission. He reports he became nauseated and vomited and developed midsternal chest discomfort. This lasted for several hours. He did not seek medical attention until the next day when the symptoms returned. He once again was nauseated and started having midsternal chest discomfort. He received several nitroglycerin in the ambulance, which apparently relieved his chest discomfort. The patient denies having any present chest discomfort. PAST MEDICAL HISTORY: 1. Coronary artery disease. 2. Hypertension. 3. Cerebrovascular disease. 4. Diabetes mellitus. 5. Dyslipidemia. PAST SURGICAL HISTORY: Tonsillectomy, arm surgery, back surgery. MEDICATIONS: On admission include: 1. Aspirin 81 daily. 2. Jardiance 25 daily. 3. Wellbutrin 100 daily. 4. Pepcid 20 b.i.d. 5. Aricept 5 daily. 6. Glipizide 10 b.i.d. 7. Lipitor 80 at bedtime. 8. Flomax 0.4 daily. 9. Mirapex 0.5 at bedtime. 10. Synthroid 50 mcg daily. ALLERGIES: HE IS ALLERGIC TO IODINE AND PENICILLIN. FAMILY HISTORY: REVIEW OF SYSTEMS: Ten-point system is noticeable for increasing anxiety. PHYSICAL EXAMINATION: GENERAL: Well-developed gentleman in no acute distress. VITAL SIGNS: Blood pressure 168/72. NECK: No jugular venous distention. LUNGS: Clear to auscultation. HEART: Regular rate and rhythm. Normal S1, S2. No murmurs. ABDOMEN: Nondistended. EXTREMITIES: Show no edema. VASCULAR: Radial pulses are 2+. Femoral pulses are 2+. LABORATORY DATA: White blood cell count 5.8, hemoglobin 12.2, hematocrit 36.0, platelets 155. Sodium 138, potassium 4.6, chloride 109, bicarbonate 21, BUN 30, creatinine 1.2. Troponin 0.027. His EKG reveals normal sinus rhythm with a left bundle-branch block. IMPRESSION: 1. Chest pain with some features suggestive of ischemic heart disease. 2. History of mild coronary artery disease. 3. Hypertension. 4. Diabetes mellitus. 5. Dyslipidemia. 6. Cerebrovascular disease. This gentleman presents with recurrent chest discomfort. I discussed the option with him of undergoing a repeat cardiac catheterization to evaluate extent of his coronary artery disease or once again stress testing. The patient strongly prefers to undergo a noninvasive evaluation. If there is any evidence of significant ischemia, we will highly recommend he proceed with cardiac catheterization. PLAN: Repeat Cardiolite stress test. Job ID: [id number]
[2020-02-18 11:09] LABS: SARS-CoV-2 MS2 Positive; SARS-CoV-2 N Gene Negative; SARS-CoV-2 S Gene Negative; SARS-CoV-2 by NAA Not Detected (NotDetected); SARS-CoV-2 orf1ab Negative
--- NOTE | 2020-02-18 11:51 | ULT ---
BILATERAL LOWER EXTREMITY VENOUS DOPPLER: Date: 02/18/2020 HISTORY: Chest pain with elevated D-Dimer. COMPARISON: None. FINDINGS: Real-time Moe scale and color Doppler with spectral analysis of the bilateral lower extremity venous system was performed. The common femoral, femoral, proximal portions of greater saphenous and deep f emoral veins, as well as the popliteal and posterior tibial veins were interrogated. Normal flow, augmentation, and compression. IMPRESSION: No deep venous thrombosis. POS: [facility]
--- NOTE | 2020-02-18 15:09 | NM ---
EXAM: NM Cardiac Stress W EF WF PROVIDED CLINICAL HISTORY: Chest pain. COMPARISON: 04/06/2019 FINDINGS: This examination was performed as a pharmacologic myocardial stress test after the administration of adenosine intravenously. There is diminished uptake of radiotracer seen within the ventricular apex on both the resting and st ress acquisitions. No significant reversible defect is seen between the stress and resting acquisitions. Quantitative analysis also shows relatively fixed defect involving the ventricular apex and septum. Diminished uptake of radiotracer was also seen involving the ventricular apex on prior study in 2019. Gated images demonstrate hypokinesis involving the septum, but there does appear to be normal ventricular wall thickening. The calculated left ventricular ejection fraction is 70%. Calculated left ventricular ejection fraction on prior study in 2019 was 66%. IMPRESSION: 1. Relatively fixed defect at the ventricular apex and distal septal wall near the apex most suggesti ve of area of scarring. No significant reversible defect is seen between the stress and resting acquisitions to suggest an area of ischemia. 2. Hypokinesis of the septum. 3. LVEF of 70%.
[2020-02-18 16:37] VITALS: BP 146/64; TEMP 97.5
--- NOTE | 2020-02-18 19:39 | PDOC.DS.DS ---
Provider - Provider Date of Admission: 02/18/20 00:47 Admitting Provider: Wilfredo Gore Primary Care Physician: [facility] Hospital Course - Hospital Course Hospital Course: Patient is a 84-year-old male who presented via the emergency department reporting some subtle at times unnoticeable chest pain. Sounded somewhat atypical for coronary disease initially. He had negative work-up and including negative troponins and a nonischemic EKG. he underwent a CT dissection protocol after being premedicated for an iodine allergy. This was negative. Patient was subsequently placed in observation. He had serial troponins which were negative. He underwent a cardiac stress test which revealed an apical fixed lesion. No reversible ischemia. Normal ejection fraction. He also had an ultrasound of his gallbladder which was completely unremarkable with a negative Yeager sign. He had a D-dimer of 0.9 and lower extremity Dopplers were performed showing no evidence of DVT. He was seen in consultation by cardiology. There was a recommendation for heart cath. Patient reported he had had one about 3 years prior and only had about a 30% lesion in RCA. At this time he has declined heart cath. They discussed possible other work-up as an outpatient and the patient is amenable to pursuing that. I met with the patient, his and his daughter who is critical care nurse in [place]. Reviewed their findings and answered their questions. - Labs Lab Results: 02/18/20 02:27 02/18/20 02:26 Abnormal Lab Results - Last 48 hrs 02/17/20 21:35: Chloride 109 H, BUN 33 H, Creatinine 1.48 H, AST 36 H 02/17/20 21:35: RBC 3.63 L, Hgb 12.5 L, Hct 36.4 L, MCV 100.0 H, MCH 34.4 H, RDW 11.4 L, Monocytes % 11.6 H, Basophils % 1.1 H, Monocytes # 0.9 H 02/17/20 21:35: D-Dimer 0.91 H 02/18/20 02:26: Chloride 109 H, Carbon Dioxide 21 L, BUN 30 H 02/18/20 02:27: RBC 3.55 L, Hgb 12.2 L, Hct 36.0 L, MCV 101.0 H, MCH 34.2 H, Neutrophils % 80.7 H, Lymphocytes % 15.0 L, Basophils % 1.1 H, Lymphocytes # 0.9 L, Monocytes # 0.1 L - Physical Exam Vitals: Vital Signs (12 hours) Temp Pulse Resp BP Pulse Ox 02/18/20 16:15 97.5 F L 80 14 146/64 H 98 02/18/20 07:42 97.7 F 94 17 168/72 H 95 Weight Weight 156 lb 5 oz Physical Exam: The patient was seen and examined on the day of discharge. Problem - Problem (1) Atypical chest pain Code(s): R07.89 - OTHER CHEST PAIN Status: Acute (2) DM2 (diabetes mellitus, type 2) Status: Chronic (3) HLD (hyperlipidemia) Code(s): E78.5 - HYPERLIPIDEMIA, UNSPECIFIED Status: Chronic (4) HTN (hypertension) Code(s): I10 - ESSENTIAL (PRIMARY) HYPERTENSION Status: Chronic (5) Hypothyroidism Code(s): E03.9 - HYPOTHYROIDISM, UNSPECIFIED Status: Chronic (6) LBBB (left bundle branch block) Code(s): I44.7 - LEFT BUNDLE-BRANCH BLOCK, UNSPECIFIED Status: Chronic Plan - Discharge Medications Home Medications: Medication Instructions Recorded Confirmed Type Aspirin [Aspir-Low] 81 mg PO DAILY 04/05/19 02/18/20 History Atorvastatin Calcium 80 mg PO HS 04/05/19 02/18/20 History Citalopram Hydrobromide 40 mg PO HS 04/05/19 02/18/20 History [Citalopram HBr] Empagliflozin [Jardiance] 25 mg PO DAILY 04/05/19 02/18/20 History Levothyroxine Sodium [Synthroid] 50 mcg PO DAILY 04/05/19 02/18/20 History Pramipexole Di-HCl [Mirapex] 0.5 mg PO HS 04/05/19 02/18/20 History Tamsulosin HCl [Flomax] 0.4 mg PO DAILY 04/05/19 02/18/20 History glipiZIDE [Glucotrol XL] 10 mg PO BID tab 04/06/19 02/18/20 Rx Donepezil HCl [Aricept] 5 mg PO DAILY 12/06/19 02/18/20 History Famotidine [Pepcid] 20 mg PO BID 12/06/19 02/18/20 History buPROPion HCl [Wellbutrin] 100 mg PO DAILY 12/06/19 02/18/20 History Allergies: iodine Allergy (Verified 02/18/20 07:40) Penicillins Allergy (Verified 02/18/20 07:40) - Discharge Instructions Activity:: Activity as Tolerated Nourishment:: Heart Healthy Diet - Follow up Plan Referrals: [facility] [Primary Care Provider] - 7 Days (PLEASE CALL AND SCHEDULE FOR FOLLOW UP APPOINTMENT. ) Ruel Gaston MD [Active] - 2-3 Weeks (PLEASE CALL AND SCHEDULE FOLLOW UP APPOINTMENT. ) Disposition: HOME Quality - Care Measures CORE MEASURES:: N/A
[2020-02-18] MEDS ORDERED: Non-Formulary Item 1 EACH (Atorvastatin Calcium [Atorvastatin Calcium] 80 MG Tablet) PO SCH (21:00)
[2020-02-18] MEDS ORDERED: Non-Formulary Item 1 EACH (Pramipexole Di-Hcl [Mirapex] 0.5 MG Tablet) PO SCH (21:00)
[2020-02-18] MEDS ORDERED: Pramipexole Di-HCl 0.25 MG TAB PO SCH (21:00)
[2020-02-18] MEDS ORDERED: Atorvastatin Calcium 40 MG TAB PO SCH (21:00)
[2020-02-18] MEDS ORDERED: Non-Formulary Item 1 EACH (Citalopram Hydrobromide [Citalopram Hbr] 40 MG Tablet) PO SCH (21:00)
[2020-02-18] MEDS ORDERED: Citalopram 20 MG TAB PO SCH (21:00)
== END 2020-02-18 18:15 | disposition home or self-care (01) ==
LOC: ERS 21:14 → 2NO 02-18 00:47
PROVIDERS: ADMIT Internal Medicine; ATTEND Internal Medicine
DX: R07.89 Other chest pain (principal); E11.319 Type 2 diabetes mellitus with unspecified diabetic retinopathy without macular edema; E03.9 Hypothyroidism, unspecified; E78.5 Hyperlipidemia, unspecified; I44.7 Left bundle-branch block, unspecified; I10 Essential (primary) hypertension; I25.10 Atherosclerotic heart disease of native coronary artery without angina pectoris; N17.9 Acute kidney failure, unspecified; N40.0 Benign prostatic hyperplasia without lower urinary tract symptoms; K21.9 Gastro-esophageal reflux disease without esophagitis; F41.9 Anxiety disorder, unspecified; F32.9 Major depressive disorder, single episode, unspecified; F03.90 Unspecified dementia, unspecified severity, without behavioral disturbance, psychotic disturbance, mood disturbance, and anxiety; G89.29 Other chronic pain; M54.9 Dorsalgia, unspecified; I73.9 Peripheral vascular disease, unspecified; K57.30 Diverticulosis of large intestine without perforation or abscess without bleeding; J98.11 Atelectasis; Z79.82 Long term (current) use of aspirin; Z79.84 Long term (current) use of oral hypoglycemic drugs; Z79.899 Other long term (current) drug therapy; Z86.73 Personal history of transient ischemic attack (TIA), and cerebral infarction without residual deficits; Z87.891 Personal history of nicotine dependence; Z88.1 Allergy status to other antibiotic agents; Z88.8 Allergy status to other drugs, medicaments and biological substances; Z20.828 Contact with and (suspected) exposure to other viral communicable diseases
CPT/HCPCS: 71045; 71275; 74174; 76705; 78452; 80048; 80053; 80061; 82962; 83690; 83735; 84484 ×3; 85025 ×2; 85379; 93005; 93017; 93970; 94760; A9500; G0378 ×2; U0003; 36415; 36416; 87635; 96374; 96375; J0153; J1200; J2270; J2920; Q9967; S0028

== ENCOUNTER 2020-02-24 09:11 | Outpatient (CLI) | payer OTHER ==
--- NOTE | 2020-02-24 10:38 | MRI ---
MRI LUMBAR SPINE WITH AND WITHOUT CONTRAST: DATE: 02/24/2020 HISTORY: 84-year-old male with lumbar radiculopathy M 54.16. COMPARISON: 09/06/2019 TECHNIQUE: Multiple sequences obtained in axial and sagittal planes, pre and post IV injection of gadolinium-bas ed contrast agent. FINDINGS: For the purposes of this report, it will be assumed that there are 5 lumbar-type vertebrae. Vertebral body heights are maintained. S1 is minimally partially lumbarized. Again noted are the bilateral pedicle screws at L4, L5, and S1. No interval change in the size of the retrospinal postoperative fluid collection abutting the dorsal surface of the thecal sac at the laminectomy defect at L5, extending superiorly to the L4-5 level and inferiorly to the L5-S1 level. T12-L1:Essentially normal L1-2:Disc space maintained. Mild disc bulge. Conus medullaris terminates at upper L2. No high-grade c entral spinal canal stenosis. Mild bilateral neural foraminal stenosis. L2-3:Moderate disc space narrowing. Prominent diffuse disc bulge. Mild to moderate right and mild lef t facet DJD. Moderate central spinal canal stenosis. Mild to moderate bilateral neural foraminal stenosis. No interval change. L3-4:Mild disc space narrowing. The moderate sized region of bone marrow edema consistent with Modic type I change, involving the posterior inferior portion of the L3 vertebral body has become slightly worse. The smaller region of Modic type I changes at the posterior superior aspect of the L4 vertebral body appears similar to previous MRI. Again noted is the largest circumferential diffuse disc bulge, plus superimposed moderate size disc extrusion involving right paracentral, right lateral , and right far lateral components, as previously reported. There is associated severe right neural foraminal stenosis and to a slightly lesser degree severe left neural foraminal stenosis, unchanged. There is a new midline laminectomy defect which results in improvement of the previously demonstrated severe central spinal canal stenosis. Currently, the degree of central spinal canal sten osis is moderate. There is a new retrospinal postoperative fluid collection at this level extending down to the mid L4 level, measuring approximately 1.5 x 1.5 x 1.5 cm. This collection is surrounded b y enhancing granulation tissue or scar tissue, depending on when the surgery occurred. L4-5:Moderate to severe disc space narrowing. Grade 1 anterolisthesis of L4 on L5 is unchanged. Again noted is the old midline laminectomy defect along with the postoperative retrospinal fluid collection as mentioned above. Mild central spinal canal stenosis. Difficult to evaluate degree of ne ural foraminal stenosis due to magnetic susceptibility artifact from hardware. Probably no significant right neural foraminal stenosis. Questionable mild to moderate left neural foraminal sten osis. No interval change. L5-S1:Old midline laminectomy defect. Previously mentioned postoperative retrospinal fluid collection mentioned above extends down to this level. Moderate to severe right neural foraminal stenosis and moderate left neural foraminal stenosis. Prominent disc bulge, posterior annular tears, and neural fo raminal stenosis, moderate to severe on the right and moderate on the left. No interval change. IMPRESSION: 1) at the level of prior laminectomies, the retrospinal fluid collection from L4-5 to L5-S1, is uncha nged, suspicious for pseudomeningocele. 2) since the prior MRI, there has been new midline laminectomy at L3-4, resulting in improvement of t he previously severe central spinal canal stenosis, now with moderate central spinal canal stenosis. 3) however, the prominent diffuse disc bulge and the prominent right-sided disc extrusion remain unch anged at L3-4. The severe bilateral neural foraminal stenosis at L3-4, right worse than left, remain unchanged. 4) new postoperative retrosternal spinal fluid collection from L3-4 to mid L4 levels.
[2020-02-24] MEDS ORDERED: Magnevist 469MG/ML 20 ML VIAL ONE (14:05)
== END 2020-02-24 09:12 | disposition home or self-care (01) ==
LOC: MRI 09:11
PROVIDERS: ATTEND Neurological Surgery
DX: M51.16 Intervertebral disc disorders with radiculopathy, lumbar region (principal); M48.061 Spinal stenosis, lumbar region without neurogenic claudication; Z98.890 Other specified postprocedural states
CPT/HCPCS: 72158; A9579

== ENCOUNTER 2020-03-17 11:21 | Emergency (ER) | payer OTHER ==
[2020-03-17] MEDS ORDERED: Proparacaine 0.5% Opth 15 ML BOT ONE (13:13)
== END 2020-03-17 13:55 | disposition home or self-care (01) ==
LOC: ERS 11:21
DX: H53.9 Unspecified visual disturbance (principal); E11.9 Type 2 diabetes mellitus without complications; E03.9 Hypothyroidism, unspecified; K21.9 Gastro-esophageal reflux disease without esophagitis; F41.9 Anxiety disorder, unspecified; F32.9 Major depressive disorder, single episode, unspecified; F17.210 Nicotine dependence, cigarettes, uncomplicated; E78.5 Hyperlipidemia, unspecified; Z79.899 Other long term (current) drug therapy
CPT/HCPCS: 99283

== ENCOUNTER 2022-07-02 15:39 | Inpatient (IN) | payer OTHER ==
[2022-07-02] MEDS ORDERED: Guaifenesin DM 100-10/5 ML UDCUP PO PRN (18:10)
[2022-07-02] MEDS ORDERED: Acetaminophen 325 MG TAB PO PRN (18:10)
[2022-07-02] MEDS ORDERED: Senokot S 8.6-50 MG TAB PO PRN (18:10)
[2022-07-02 18:13] VITALS: BMI 22.8
[2022-07-02] MEDS ORDERED: Nitroglycerin 0.4 MG TAB (25 Tab Bottle) SL PRN (18:45)
[2022-07-02] MEDS ORDERED: HumaLOG 300 UNITS/3 ML VIAL SC PRN (18:47)
[2022-07-02] MEDS ORDERED: Dextrose 50% Abboject 50 ML SYRINGE SLOW IVP PRN (18:47)
[2022-07-02] MEDS ORDERED: Dextrose 5% in Water 1,000 ML IV PRN (18:47)
[2022-07-02 20:11] LABS: Troponin I Less than 0.010 ng/mL (< 0.028)
[2022-07-02] MEDS: Famotidine 20 MG TAB PO SCH (20:54)
[2022-07-02] MEDS: Atorvastatin Calcium 40 MG TAB PO SCH (20:54)
[2022-07-02] MEDS ORDERED: Pramipexole Di-HCl 0.25 MG TAB PO SCH ×2 (21:00→23:18)
[2022-07-02 22:31] LABS: Troponin I Less than 0.010 ng/mL (< 0.028)
[2022-07-03 06:00] LABS: #Basophils 0.1 thou/uL (0.0-0.2); #Eosinphils 0.4 thou/uL (0.0-0.7); #Lymphocytes 1.7 thou/uL (1.20-3.40); #Monocytes 0.5 thou/uL (0.11-0.59); #Neutrophils 3.3 thou/uL (1.40-6.50); %Basophils 1.5 % (0.0-1.0); %Lymphocytes 28.1 % (21.0-51.0); %Neutrophils 55.4 % (42.0-75.0); Hemoglobin 11.4 g/dL (14.0-18.0); Mean Corpuscular HGB CONC 33.2 g/dL (32.0-36.0); Mean Corpuscular Hemoglobin 33.3 pg (27.0-31.0); Mean Platelet Volume 7.7 fL (7.4-10.4); Platelet Count 131 10x3/uL (130-400); RBC Distribution Width 11.8 % (11.5-14.5); Red Blood Cell (RBC) Count 3.42 mill/uL (4.70-6.10); White Blood Cell (WBC) Count 5.9 10x3/uL (4.8-10.8)
[2022-07-03 06:21] LABS: Anion Gap 11 mmol/L (10-20); BUN (Urea Nitrogen) 25 mg/dL (8.4-25.7); Calc. Creatinine Clearance 43 mL/min (70-130); Calcium 8.7 mg/dL (7.8-10.44); Carbon Dioxide 25 mmol/L (23-31); Chloride 108 mmol/L (98-107); Cholesterol 82 mg/dl (< 200 Desired); Estimated GFR 63; Glucose 118 mg/dL (83-110); HDL Cholesterol 42 mg/dL (>60 Neg Risk); LDL Cholesterol, Calculated 29 mg/dL; Potassium 4.4 mmol/L (3.5-5.1); Sodium 140 mmol/L (136-145); Triglycerides 56 mg/dL (Less than 150)
[2022-07-03] MEDS: Levothyroxine Sodium 50 MCG TAB PO SCH (07:25)
[2022-07-03] MEDS ORDERED: Aspirin 81 mg Enteric Coated Tablet PO SCH (09:00)
[2022-07-03] MEDS ORDERED: FLU VACC QS2022-23(65YR UP)/PF 240 MCG/0.7 ML SYRINGE IM ONE (09:00)
[2022-07-03] MEDS: Empagliflozin 25 MG TAB PO SCH (09:15)
[2022-07-03] MEDS: Cyanocobalamin (Vitamin B-12) 1,000 MCG TAB PO SCH (09:15)
[2022-07-03] MEDS: buPROPion HCl 100 MG TAB PO SCH (09:15)
[2022-07-03] MEDS: Donepezil HCl 5 MG TAB PO SCH (09:15)
[2022-07-03] MEDS: Famotidine 20 MG TAB PO SCH ×2 (09:16→19:50)
[2022-07-03] MEDS: Tamsulosin HCl 0.4 MG CAP PO SCH (09:16)
[2022-07-03] MEDS: Aspirin Chewable 81 MG TAB PO SCH (11:54)
[2022-07-03] MEDS: Atorvastatin Calcium 40 MG TAB PO SCH (19:50)
[2022-07-03] MEDS: Metoprolol Tartrate 25 MG TAB PO SCH (19:51)
[2022-07-04] MEDS: Levothyroxine Sodium 50 MCG TAB PO SCH (06:13)
[2022-07-04] MEDS ORDERED: ADENOSINE 60 MG/20 ML VIAL ONE (10:00)
[2022-07-04] MEDS ORDERED: Iopamidol-370 76% 500 ML 1 ML ONE (11:08)
[2022-07-04] MEDS: Famotidine 20 MG TAB PO SCH (12:13)
[2022-07-04] MEDS: Aspirin Chewable 81 MG TAB PO SCH (12:13)
[2022-07-04] MEDS: Cyanocobalamin (Vitamin B-12) 1,000 MCG TAB PO SCH (12:13)
[2022-07-04] MEDS: buPROPion HCl 100 MG TAB PO SCH (12:14)
[2022-07-04] MEDS: Empagliflozin 25 MG TAB PO SCH (12:14)
[2022-07-04] MEDS: Metoprolol Tartrate 25 MG TAB PO SCH (12:14)
[2022-07-04] MEDS: Tamsulosin HCl 0.4 MG CAP PO SCH (12:14)
[2022-07-04] MEDS: Donepezil HCl 5 MG TAB PO SCH (12:14)
[2022-07-04] MEDS ORDERED: Famotidine/PF 20 mg/2ml Vial SLOW IVP SCH (15:00)
[2022-07-04] MEDS ORDERED: diphenhydrAMINE 50 MG/ML VIAL IVP SCH (15:00)
[2022-07-04] MEDS ORDERED: methylPREDNISolone Sod Succ 40 MG VIAL IVP SCH (15:00)
[2022-07-04 16:57] VITALS: BP 123/58; TEMP 97.7
== END 2022-07-04 17:37 | disposition home or self-care (01) | DRG 313 ==
LOC: 2SW 15:39 → OBSVTOIN 07-04 14:19
PROVIDERS: ADMIT Internal Medicine; ATTEND Internal Medicine
DX: R07.89 Other chest pain (principal); Z20.822 Contact with and (suspected) exposure to COVID-19; E03.9 Hypothyroidism, unspecified; I11.9 Hypertensive heart disease without heart failure; E78.2 Mixed hyperlipidemia; N40.0 Benign prostatic hyperplasia without lower urinary tract symptoms; R06.6 Hiccough; I44.7 Left bundle-branch block, unspecified; Z98.49 Cataract extraction status, unspecified eye; Z88.0 Allergy status to penicillin; Z91.041 Radiographic dye allergy status; Z79.899 Other long term (current) drug therapy; Z79.890 Hormone replacement therapy; Z98.890 Other specified postprocedural states; Z87.891 Personal history of nicotine dependence; Z90.89 Acquired absence of other organs
CPT/HCPCS: 36415; 36416; 71275; 78452; 80048; 80061; 85025; 85379; 93005; 93010; 93017; 93306; 94760; 96372; A9500; G0378; J1200; J1650; J2920; S0028; U0003; U0005

== ENCOUNTER 2022-11-16 12:02 | Outpatient (CLI) | payer OTHER | END 2022-11-16 12:03 | disposition home or self-care (01) | LOC: RAD 12:02 | PROVIDERS: ATTEND Anesthesiology Pain Medicine | DX: M16.0 Bilateral primary osteoarthritis of hip (principal) ==

== ENCOUNTER 2022-11-30 10:16 | Outpatient (CLI) | payer OTHER | END 2022-11-30 10:17 | disposition home or self-care (01) | LOC: BICMRI 10:16 | PROVIDERS: ATTEND Anesthesiology Pain Medicine | DX: M48.062 Spinal stenosis, lumbar region with neurogenic claudication (principal); M47.816 Spondylosis without myelopathy or radiculopathy, lumbar region; G95.19 Other vascular myelopathies | CPT/HCPCS: 72148 ==

== ENCOUNTER 2024-03-27 08:00 | Outpatient (CLI) | payer OTHER | END 2024-03-27 08:01 | disposition home or self-care (01) | LOC: PET 08:00 | PROVIDERS: ATTEND Internal Medicine Hematology & Oncology | DX: C43.39 Malignant melanoma of other parts of face (principal) | CPT/HCPCS: 78816; A9552 ==

== ENCOUNTER 2024-04-13 18:12 | Inpatient (IN) | payer MEDICARE, OTHER ==
[~2024-04-13 18:12] MED LIST changes: -Iopamidol-370 76% 500 ML 1 ML ONE; +Iopamidol-370 76% 500 ML MDV (1 ML CHARGE) ONE
[2024-04-13] MEDS ORDERED: fentaNYL 50 mcg/mL 1 mL Vial ONE (18:27)
[2024-04-13 18:38] LABS: #Basophils 0.04 10x3/uL (0.0-0.2); %Basophils 0.7 % (0.0-1.0); %Eosinophils 3.6 % (0.0-10.0); %Lymphocytes 7.3 % (21.0-51.0); %Monocytes 7.9 % (0.0-10.0); %Neutrophils 80.1 % (42.0-75.0); Hematocrit 36.7 % (42.0-52.0); Hemoglobin 12.1 g/dL (14.0-18.0); Mean Corpuscular Hemoglobin 31.9 pg (27.0-31.0); Mean Corpuscular Volume 96.8 fL (78.0-98.0); Platelet Count 116 10x3/uL (130-400); RBC Distribution Width 13.2 % (11.5-14.5); Red Blood Cell (RBC) Count 3.79 mill/uL (4.70-6.10)
[2024-04-13 18:44] LABS: INR-International Normal Ratio 1.2; PTT 37.2 sec (22.9-36.1); Prothrombin Time 15.1 sec (12.0-14.7)
[2024-04-13] MEDS ORDERED: Propofol 1,000 MG/100 ML VIAL IV ONE (18:46)
[2024-04-13 18:47] LABS: Lipase 13 U/L (8-78); Magnesium 2.2 mg/dL (1.6-2.6)
[2024-04-13 18:48] LABS: Acetaminophen Less than 10 mcg/mL (Less than 10); Alcohol Less than 10.0 mg/dL (Less than 10); Salicylate Less than 8.0 mg/dL (Less than 8.0)
[2024-04-13 18:49] LABS: Analyzer IN Cardio ER; CO2 Tension 33.3 mmHg (35.0-45.0); Calcium, Ionized (arterial) 1.14 mmol/L (1.12-1.30); Carboxyhemoglobin (COHb) 0.5 gm% (0.0-3.0); Hematocrit-ABG 36 % (42.0-52.0); Hemoglobin (Hb) 12.1 g/dL (14.0-18.0); O2 Tension (PaO2), arterial 444.6 mmHg (> 60.0); Potassium - ABG Lab 3.92 mmol/L (3.70-5.30); pH, Arterial 7.397 (7.35-7.45)
[2024-04-13 18:50] LABS: ALV-art Gradient 226.775 mmHg (0-20); Puncture Site Left Radial artery
[2024-04-13 18:52] LABS: Troponin I Less than 0.010 ng/mL (< 0.028)
[2024-04-13 19:00] LABS: ALT (SGPT) 39 U/L (8-55); AST (SGOT) 33 U/L (5-34); Albumin 3.8 g/dL (3.4-4.8); Alkaline Phosphatase 86 U/L (40-110); Anion Gap 14 mmol/L (10-20); BUN (Urea Nitrogen) 27 mg/dL (8.4-25.7); Bilirubin, Total 0.5 mg/dL (0.2-1.2); CK (CPK) 84 U/L (30-200); Calc. Creatinine Clearance 0 mL/min (70-130); Calcium 8.1 mg/dL (7.8-10.44); Carbon Dioxide 21 mmol/L (23-31); Chloride 109 mmol/L (98-107); Estimated GFR 53; Globulin 2.5 g/dL (2.4-3.5); Glucose 201 mg/dL (83-110); Potassium 4.3 mmol/L (3.5-5.1); Protein, Total 6.3 g/dL (5.8-8.1); Sodium 140 mmol/L (136-145)
[2024-04-13] MEDS ORDERED: Fentanyl CADD 100 ML IV SCH (19:00)
[2024-04-13 19:08] LABS: Burr Cells MODERATE= 6-15 cells HPF (0-1); Macrocytosis SLIGHT = 6-15 cells HPF (0-5); Ovalocytes SLIGHT = 2-5 cells HPF (0-1); Platelet Adequacy Comment Platelets Decreased; Polychromasia SLIGHT = 2-3 cells HPF (0-2); Tear Drops SLIGHT = 2-5 cells HPF (0-1)
[2024-04-13] MEDS ORDERED: Lorazepam 2 MG/ML VIAL ONE (19:58)
[2024-04-13 20:05] LABS: Bacteria/HPF None Seen HPF (None Seen); Bilirubin Negative (Negative); Blood, Urine Negative (Negative); CAUTI Indications for Culture Alt mental st,lethar; Clarity Clear (Clear); Glucose, Urine (Dipstick) Greater than 1000 mg/dL (Negative); Ketone, Urine Negative (Negative); Leukocyte Negative Leu/uL (Negative); Nitrite Negative (Negative); Protein, Urine (Dipstick) Negative (Neg-Trace); RBC/HPF 0-3 HPF (0-3); Specific Gravity, Urine 1.018 (1.002-1.036); Squamous Epithelial None Seen HPF (0-3); Urobilinogen Normal mg/dL (Less than 2); WBC/HPF 0-3 HPF (0-3); pH, Urine 6.5 (5.0-9.0)
[2024-04-13 20:10] LABS: Amphetamine Not Detected (NotDetected); Barbiturates Screen Not Detected (NotDetected); Benzodiazepine Screen Not Detected (NotDetected); Cocaine Metabolite Screen Not Detected (NotDetected); Methadone Not Detected (NotDetected); Methamphetamine Not Detected (NotDetected); Opiate Screen Detected (NotDetected); Oxycodone Screen Not Detected (NotDetected); Phencyclidine (PCP) Not Detected (NotDetected); THC/Cannabinoid Screen Not Detected (NotDetected); Tricyclic Screen Not Detected (NotDetected)
[2024-04-13 20:28] LABS: Renal Epithelial None Seen HPF (None Seen); Sperm/HPF None Seen HPF (None Seen)
[2024-04-13 20:29] LABS: Urine Culture Reflex No No
[2024-04-13] MEDS ORDERED: Aspirin 300 MG Suppository ONE (20:41)
[2024-04-13] MEDS ORDERED: hydrALAZINE 20 MG/ML VIAL SLOW IVP PRN (20:48)
[2024-04-13] MEDS ORDERED: Labetalol HCl 100 MG/20 ML VIAL SLOW IVP PRN (20:48)
[2024-04-13] MEDS ORDERED: Acetaminophen 325 MG (10.15 ML) UDCUP PO PRN (20:53)
[2024-04-13] MEDS ORDERED: Ipratropium/Albuterol 3 ML NEB NEB PRN (20:53)
[2024-04-13] MEDS ORDERED: Electrolyte Replacement Protocol 1 EACH IVPB PRN (20:53)
[2024-04-13] MEDS ORDERED: Ondansetron PF 4 MG/2 ML Vial IVP PRN (20:56)
[2024-04-13] MEDS ORDERED: Senokot S 8.6-50 MG TAB PO PRN (20:56)
[2024-04-13] MEDS ORDERED: Ondansetron ODT 4 MG TAB PO PRN (20:56)
[2024-04-13] MEDS ORDERED: Acetaminophen 325 MG TAB PO PRN (20:56)
[2024-04-13] MEDS ORDERED: Aspirin 300 MG Suppository PR SCH (21:00)
[2024-04-13] MEDS ORDERED: Propofol 1,000 MG/100 ML VIAL IV PRN (21:00)
[2024-04-13] MEDS ORDERED: Lorazepam 2 MG/ML VIAL SLOW IVP PRN (21:00)
[2024-04-13] MEDS ORDERED: Morphine 2 MG/ML VIAL SLOW IVP PRN (21:00)
[2024-04-13] MEDS ORDERED: Propofol BOLUS 1,000 MG/100 ML VIAL IV PRN (21:00)
[2024-04-13] MEDS ORDERED: DISCONTINUE PREVIOUS NARCOTIC PAIN MEDICATIONS AND BENZODIAZEPINES FS SCH (21:00)
[2024-04-13] MEDS ORDERED: Ventilator Sedation Protocol 1 EACH FS SCH (21:00)
[2024-04-13] MEDS ORDERED: Fentanyl BOLUS 250 ML IVPB PRN (21:00)
[2024-04-13 21:46] VITALS: BMI 20.3
[2024-04-13 22:35] LABS: Troponin I Less than 0.010 ng/mL (< 0.028)
[2024-04-13] MEDS: Lactated Ringer's 1,000 ML IV SCH (23:07)
[2024-04-13] MEDS: Atorvastatin Calcium 40 MG TAB PER TUBE SCH (23:07)
[2024-04-13] MEDS: Thiamine HCl 200 MG/2 ML VIAL SLOW IVP SCH (23:07)
[2024-04-13] MEDS: Famotidine/PF 20 mg/2ml Vial SLOW IVP SCH (23:25)
[2024-04-14] MEDS: Famotidine 40 MG/5 ML Oral Suspension PER TUBE SCH (00:14)
[2024-04-14] MEDS: Insulin Regular, Human 100 UNIT/ML 10 ML VIAL SC PRN (01:15)
[2024-04-14 01:22] LABS: Troponin I Less than 0.010 ng/mL (< 0.028)
[2024-04-14 04:33] LABS: %Neutrophils 71.6 % (42.0-75.0); Hematocrit 31.1 % (42.0-52.0); Hemoglobin 10.2 g/dL (14.0-18.0); Mean Corpuscular HGB CONC 32.8 g/dL (32.0-36.0); Mean Corpuscular Hemoglobin 31.9 pg (27.0-31.0); Mean Corpuscular Volume 97.2 fL (78.0-98.0); Mean Platelet Volume 10.4 fL (7.4-10.4); Platelet Count 95 10x3/uL (130-400); RBC Distribution Width 13.1 % (11.5-14.5)
[2024-04-14 04:34] LABS: #Basophils 0.04 10x3/uL (0.0-0.2); %Basophils 0.7 % (0.0-1.0); %Eosinophils 3.2 % (0.0-10.0); %Lymphocytes 14.9 % (21.0-51.0); %Monocytes 9.2 % (0.0-10.0)
[2024-04-14 04:51] LABS: Hemoglobin A1c 7.8 % (4.0-6.0)
[2024-04-14 04:52] LABS: ALT (SGPT) 38 U/L (8-55); AST (SGOT) 32 U/L (5-34); Albumin 2.9 g/dL (3.4-4.8); Alkaline Phosphatase 64 U/L (40-110); Anion Gap 11 mmol/L (10-20); BUN (Urea Nitrogen) 21 mg/dL (8.4-25.7); Bilirubin, Total 0.5 mg/dL (0.2-1.2); Calc. Creatinine Clearance 45 mL/min (70-130); Calcium 8.1 mg/dL (7.8-10.44); Carbon Dioxide 19 mmol/L (23-31); Cardiac Risk 2.1 (Less than 4.5); Chloride 113 mmol/L (98-107); Cholesterol 81 mg/dl (< 200 Desired); Estimated GFR 65; Globulin 2.3 g/dL (2.4-3.5); Glucose 150 mg/dL (83-110); HDL Cholesterol 39 mg/dL (>60 Neg Risk); LDL Cholesterol, Calculated 30 mg/dL; Potassium 4.1 mmol/L (3.5-5.1); Protein, Total 5.2 g/dL (5.8-8.1); Sodium 139 mmol/L (136-145); Triglycerides 58 mg/dL (Less than 150)
[2024-04-14 06:47] LABS: Actual Bicarbonate (HCO3a) 22.5 mEq/L (22-28); Base Excess (BEa) 1.5 mEq/L (-2.0 to +3.0); CO2 Tension 24.6 mmHg (35.0-45.0); Calcium, Ionized (arterial) 1.08 mmol/L (1.12-1.30); Carboxyhemoglobin (COHb) 0.5 gm% (0.0-3.0); Hematocrit-ABG 31 % (42.0-52.0); Hemoglobin (Hb) 10.7 g/dL (14.0-18.0); O2 Tension (PaO2), arterial 119.7 mmHg (> 60.0); Potassium - ABG Lab 3.83 mmol/L (3.70-5.30); Puncture Site Left Radial artery; pH, Arterial 7.579 (7.35-7.45)
[2024-04-14] MEDS: DC Sedation Protocol FS ONE (07:30)
[2024-04-14] MEDS: Enoxaparin 40 MG (0.4 mL) SYRINGE SC SCH (08:25)
[2024-04-14] MEDS ORDERED: Heparin 5,000 UNITS/ML VIAL SC SCH (09:00)
[2024-04-14] MEDS ORDERED: Electrolyte Replacement Protocol FS PRN (13:15)
[2024-04-15] MEDS ORDERED: Labetalol HCl 100 MG/20 ML VIAL SLOW IVP PRN (03:56)
[2024-04-15 04:59] LABS: #Basophils 0.04 10x3/uL (0.0-0.2); %Basophils 0.5 % (0.0-1.0); %Eosinophils 3.7 % (0.0-10.0); %Lymphocytes 16.5 % (21.0-51.0); %Monocytes 9.9 % (0.0-10.0); Hematocrit 32.4 % (42.0-52.0); Hemoglobin 10.5 g/dL (14.0-18.0); Mean Corpuscular HGB CONC 32.4 g/dL (32.0-36.0); Mean Corpuscular Volume 98.8 fL (78.0-98.0); Mean Platelet Volume 10.3 fL (7.4-10.4); Platelet Count 99 10x3/uL (130-400); Red Blood Cell (RBC) Count 3.28 mill/uL (4.70-6.10)
[2024-04-15 05:21] LABS: ALT (SGPT) 37 U/L (8-55); AST (SGOT) 32 U/L (5-34); Albumin 2.9 g/dL (3.4-4.8); Alkaline Phosphatase 63 U/L (40-110); Anion Gap 11 mmol/L (10-20); BUN (Urea Nitrogen) 20 mg/dL (8.4-25.7); Bilirubin, Total 0.5 mg/dL (0.2-1.2); Calc. Creatinine Clearance 46 mL/min (70-130); Calcium 8.4 mg/dL (7.8-10.44); Carbon Dioxide 23 mmol/L (23-31); Chloride 111 mmol/L (98-107); Estimated GFR 71; Globulin 2.6 g/dL (2.4-3.5); Glucose 98 mg/dL (83-110); Protein, Total 5.5 g/dL (5.8-8.1); Sodium 141 mmol/L (136-145)
[2024-04-15] MEDS: Aspirin 300 MG Suppository PR SCH (05:34)
[2024-04-15 13:03] VITALS: BMI 19.4
[2024-04-15] MEDS: Atorvastatin Calcium 40 MG TAB PO SCH (19:43)
[2024-04-15] MEDS: Famotidine 20 MG TAB PO SCH (19:43)
[2024-04-16 05:52] LABS: #Basophils 0.04 10x3/uL (0.0-0.2); %Basophils 0.6 % (0.0-1.0); %Eosinophils 3.5 % (0.0-10.0); %Lymphocytes 18.3 % (21.0-51.0); %Monocytes 9.8 % (0.0-10.0); %Neutrophils 67.5 % (42.0-75.0); Hematocrit 35.9 % (42.0-52.0); Hemoglobin 11.7 g/dL (14.0-18.0); Mean Corpuscular HGB CONC 32.6 g/dL (32.0-36.0); Mean Corpuscular Hemoglobin 31.1 pg (27.0-31.0); Mean Corpuscular Volume 95.5 fL (78.0-98.0); Platelet Count 115 10x3/uL (130-400); RBC Distribution Width 12.5 % (11.5-14.5); Red Blood Cell (RBC) Count 3.76 mill/uL (4.70-6.10)
[2024-04-16 06:04] LABS: ALT (SGPT) 35 U/L (8-55); AST (SGOT) 29 U/L (5-34); Albumin 3.3 g/dL (3.4-4.8); Alkaline Phosphatase 76 U/L (40-110); Anion Gap 12 mmol/L (10-20); BUN (Urea Nitrogen) 19 mg/dL (8.4-25.7); Bilirubin, Total 0.8 mg/dL (0.2-1.2); Calc. Creatinine Clearance 46 mL/min (70-130); Calcium 8.9 mg/dL (7.8-10.44); Carbon Dioxide 22 mmol/L (23-31); Chloride 109 mmol/L (98-107); Estimated GFR 72; Globulin 3.1 g/dL (2.4-3.5); Glucose 164 mg/dL (83-110); Potassium 4.3 mmol/L (3.5-5.1); Protein, Total 6.4 g/dL (5.8-8.1); Sodium 139 mmol/L (136-145)
[2024-04-16] MEDS ORDERED: Acetaminophen 650 MG/20.3 ML UDCUP PO PRN (11:00)
[2024-04-16] MEDS: Tamsulosin HCl 0.4 MG CAP PO SCH (19:25)
[2024-04-16] MEDS: Mirtazapine 30 MG TAB PO SCH (19:25)
[2024-04-16] MEDS: Magnesium Oxide 400 MG TAB PO SCH (19:25)
[2024-04-16] MEDS: Atorvastatin Calcium 40 MG TAB PO SCH (19:25)
[2024-04-17 06:28] LABS: #Basophils 0.04 10x3/uL (0.0-0.2); %Basophils 0.7 % (0.0-1.0); %Lymphocytes 24.8 % (21.0-51.0); %Monocytes 9.6 % (0.0-10.0); %Neutrophils 59.7 % (42.0-75.0); Hematocrit 37.3 % (42.0-52.0); Hemoglobin 12.4 g/dL (14.0-18.0); Mean Corpuscular HGB CONC 33.2 g/dL (32.0-36.0); Mean Corpuscular Hemoglobin 31.7 pg (27.0-31.0); Mean Corpuscular Volume 95.4 fL (78.0-98.0); Mean Platelet Volume 10.5 fL (7.4-10.4); Platelet Count 139 10x3/uL (130-400); RBC Distribution Width 12.6 % (11.5-14.5); Red Blood Cell (RBC) Count 3.91 mill/uL (4.70-6.10)
[2024-04-17 06:40] LABS: ALT (SGPT) 32 U/L (8-55); AST (SGOT) 25 U/L (5-34); Albumin 3.4 g/dL (3.4-4.8); Alkaline Phosphatase 74 U/L (40-110); Anion Gap 12 mmol/L (10-20); BUN (Urea Nitrogen) 22 mg/dL (8.4-25.7); Bilirubin, Total 0.7 mg/dL (0.2-1.2); Calc. Creatinine Clearance 40 mL/min (70-130); Calcium 8.9 mg/dL (7.8-10.44); Carbon Dioxide 25 mmol/L (23-31); Chloride 106 mmol/L (98-107); Estimated GFR 60; Globulin 3.1 g/dL (2.4-3.5); Glucose 164 mg/dL (83-110); Magnesium 1.9 mg/dL (1.6-2.6); Potassium 4.1 mmol/L (3.5-5.1); Protein, Total 6.5 g/dL (5.8-8.1); Sodium 139 mmol/L (136-145)
[2024-04-17] MEDS: Donepezil HCl 10 MG TAB PO SCH (08:49)
[2024-04-17] MEDS: Aspirin 81 mg Enteric Coated Tablet PO SCH (08:49)
[2024-04-17] MEDS: Levothyroxine Sodium 75 MCG TAB PO SCH (08:49)
[2024-04-17] MEDS: Magnesium 2 GM/50 ML(in water) 2 GM in Premix 1 BAG IVPB SCH (08:49)
[2024-04-17] MEDS ORDERED: Non-Formulary Item 1 EACH (Atorvastatin Calcium [Atorvastatin Calcium] 80 MG Tablet) PO SCH (09:00)
[2024-04-18 07:37] LABS: #Basophils 0.06 10x3/uL (0.0-0.2); %Basophils 1.1 % (0.0-1.0); %Eosinophils 5.4 % (0.0-10.0); %Lymphocytes 29.6 % (21.0-51.0); %Monocytes 10.5 % (0.0-10.0); Hematocrit 37.1 % (42.0-52.0); Hemoglobin 12.3 g/dL (14.0-18.0); Mean Corpuscular HGB CONC 33.2 g/dL (32.0-36.0); Mean Corpuscular Hemoglobin 31.8 pg (27.0-31.0); Mean Corpuscular Volume 95.9 fL (78.0-98.0); Mean Platelet Volume 10.4 fL (7.4-10.4); Platelet Count 158 10x3/uL (130-400); RBC Distribution Width 12.5 % (11.5-14.5); Red Blood Cell (RBC) Count 3.87 mill/uL (4.70-6.10)
[2024-04-18 11:39] VITALS: BP 143/62; TEMP 97.8
== END 2024-04-18 12:08 | disposition swing bed (61) | DRG 917 ==
LOC: ERS 18:12 → CCU 18:26 → T4-B 04-15 13:02
PROVIDERS: ADMIT Internal Medicine; ATTEND Internal Medicine
PROC: 0T9B70Z Drainage of Bladder with Drainage Device, Via Natural or Artificial Opening (ICD-10-PCS; principal; 2024-04-13)
PROC: 0DH67UZ Insertion of Feeding Device into Stomach, Via Natural or Artificial Opening (ICD-10-PCS; 2024-04-13)
PROC: 4A00X4Z Measurement of Central Nervous Electrical Activity, External Approach (ICD-10-PCS; 2024-04-13)
PROC: 4A133R1 Monitoring of Arterial Saturation, Peripheral, Percutaneous Approach (ICD-10-PCS; 2024-04-13)
PROC: 5A1935Z Respiratory Ventilation, Less than 24 Consecutive Hours (ICD-10-PCS; 2024-04-13)
DX: T42.6X1A Poisoning by other antiepileptic and sedative-hypnotic drugs, accidental (unintentional), initial encounter (principal); G93.41 Metabolic encephalopathy; J96.01 Acute respiratory failure with hypoxia; N17.9 Acute kidney failure, unspecified; E11.65 Type 2 diabetes mellitus with hyperglycemia; E11.22 Type 2 diabetes mellitus with diabetic chronic kidney disease; D69.6 Thrombocytopenia, unspecified; F32.A Depression, unspecified; F41.9 Anxiety disorder, unspecified; Z79.82 Long term (current) use of aspirin; Z79.899 Other long term (current) drug therapy; Z79.84 Long term (current) use of oral hypoglycemic drugs; Z91.041 Radiographic dye allergy status; Z88.0 Allergy status to penicillin; Z87.891 Personal history of nicotine dependence; I10 Essential (primary) hypertension; E78.5 Hyperlipidemia, unspecified; E03.9 Hypothyroidism, unspecified; Z98.890 Other specified postprocedural states
CPT/HCPCS: 0042T; 36415; 36416; 36600; 51702; 70450; 70496; 70498; 71045; 80053; 80061; 80306; 80307; 81001; 82533; 82550; 82805; 83036; 83605; 83690; 83735; 84145; 84443; 84484; 85025; 85610; 85730; 86850; 86900; 86901; 87040; 87086; 93005; 93010; 93306; 94002; 94003; 94760; 96365; 96366; 96368; 96375; 96376; 99292; J1650; J1815; J2060; J2704; J3010; J3411; J3475; J3490; J7120; Q9967

== ENCOUNTER 2025-03-28 03:54 | Emergency (ER) | payer OTHER ==
[2025-03-28 05:17] LABS: #Basophils 0.06 10x3/uL (0.0-0.2); #Eosinophils 0.15 10x3/uL (0.0-0.7); #Monocytes 0.48 10x3/uL (0.11-0.59); #Neutrophils 4.77 10x3/uL (1.40-6.50); %Basophils 0.9 % (0.0-1.0); %Eosinophils 2.4 % (0.0-10.0); %Lymphocytes 13.7 % (21.0-51.0); %Monocytes 7.6 % (0.0-10.0); %Neutrophils 75.1 % (42.0-75.0); Hematocrit 34.6 % (42.0-52.0); Hemoglobin 11.2 g/dL (14.0-18.0); Mean Corpuscular Hemoglobin 30.8 pg (27.0-31.0); Mean Corpuscular Volume 95.1 fL (78.0-98.0); Platelet Count 100 10x3/uL (130-400); Red Blood Cell (RBC) Count 3.64 mill/uL (4.70-6.10); White Blood Cell (WBC) Count 6.35 10x3/uL (4.8-10.8)
[2025-03-28 05:23] LABS: ALT (SGPT) 21 U/L (Less than 45); AST (SGOT) 26 U/L (11-34); Albumin 3.6 g/dL (3.1-4.5); Alkaline Phosphatase 88 U/L (40-110); Anion Gap 12 mmol/L (10-20); BUN (Urea Nitrogen) 28 mg/dL (8.4-25.7); Bilirubin, Total 0.3 mg/dL (0.3-1.2); Calc. Creatinine Clearance 0 mL/min (70-130); Calcium 8.8 mg/dL (7.8-10.44); Carbon Dioxide 26 mmol/L (23-31); Chloride 106 mmol/L (98-107); Globulin 2.6 g/dL (2.4-3.5); Glucose 235 mg/dL (83-110); Potassium 4.2 mmol/L (3.5-5.1); Sodium 140 mmol/L (136-145)
[2025-03-28 06:09] LABS: Burr Cells SLIGHT = 2-5 cells HPF (0-1); Platelet Adequacy Comment Platelets Decreased; Smudge Cells 7.9 %
[2025-03-28 06:15] LABS: Bacteria/HPF None Seen HPF (None Seen); CAUTI Indications for Culture Alt mental st,lethar; Glucose, Urine (Dipstick) Greater than 1000 mg/dL (Negative); Leukocyte Negative Leu/uL (Negative); Protein, Urine (Dipstick) Negative (Neg-Trace); RBC/HPF 0-3 HPF (0-3); Specific Gravity, Urine 1.025 (1.002-1.036); WBC/HPF 0-3 HPF (0-3)
[2025-03-28 06:39] LABS: Urine Culture Reflex No No
== END 2025-03-28 07:00 | disposition home or self-care (01) ==
LOC: ERS 03:54
DX: R56.9 Unspecified convulsions (principal); E11.9 Type 2 diabetes mellitus without complications; Z79.899 Other long term (current) drug therapy; Z87.891 Personal history of nicotine dependence
CPT/HCPCS: 70450; 71045; 72125; 80053; 81001; 85025; 93005